=== PATIENT | female | born 1975 ===

== ENCOUNTER → 2021-07-02 09:40 | Outpatient (BNVA) | payer OTHER, MEDICAID, SELFPAY | PROVIDERS: PCP Hospitalist; Visit Provider Nurse Practitioner Family | DX: G47.33 Obstructive sleep apnea (adult) (pediatric) (principal); R40.0 Somnolence; R00.2 Palpitations; F43.0 Acute stress reaction; Z87.891 Personal history of nicotine dependence; Z88.6 Allergy status to analgesic agent; Z88.0 Allergy status to penicillin; Z88.8 Allergy status to other drugs, medicaments and biological substances; Z99.89 Dependence on other enabling machines and devices; Z79.899 Other long term (current) drug therapy | CPT/HCPCS: 99212 ==

== ENCOUNTER 2023-03-31 11:40 | Outpatient (AMB) | payer OTHER, SELFPAY ==
--- NOTE | 2023-03-31 11:44 | MHC.OFFVIS ---
Intake Vital Signs 03/31/23 11:46 Height 5 ft 4 in Weight 241 lb 8 oz BMI 41.4 BP 130/82 Blood Pressure Location Lt brachial Position Sitting Pulse 80 Pulse Source Pulse Oximeter Pulse Oximetry (%) 99 Oxygen Delivery Method Room Air Intake Visit Reasons: Follow up - CANDICE - LVM Allergies acetaminophen [From Percocet] Allergy (Intermediate, Verified 03/31/23 11:49) Chest Pain leuprolide [From Lupron] Allergy (Intermediate, Verified 03/31/23 11:49) Rash oxycodone [From Percocet] Allergy (Intermediate, Verified 03/31/23 11:49) Chest Pain Penicillins Allergy (Intermediate, Verified 03/31/23 11:49) Rash tretinoin [From Altreno] Allergy (Intermediate, Verified 03/31/23 11:49) Rash venlafaxine Allergy (Intermediate, Verified 03/31/23 11:49) Itching HPI HPI Comments History of Present Illness Details 48 y/o female patient presents for follow up of CANDICE on CPAP. Pt reports she stopped using CPAP more than a year ago. No CPAP compliance date available since 03/2021. Pt reports she did not tolerate CPAP, woke up in the middle of night with heart palpitation and her BP was elevated. Also she sees black spots when she uses CPAP. Pt's last sleep study maybe three years ago. Pt continues to endorse gasping arousals, non refreshing sleep, with daytime sleepiness and AM headache. Pt was on PAP 5-20 cmH2O. She tried ativan for anxiety q HS, but it caused her skin itchiness and she stopped taking it. Pt sees psychiatrist for anxiety and panic attack. She is on hydroxyzine 25 mg TID. Pt wants to retry CPAP. Her CPAP does not transmitting and had a new SD card. Pt still has her original CPAP. [facility] Medical History Memory loss Acid reflux Headache Depression Asthma Arthritis Surgical History H/O knee surgery Hx of hysterectomy Hx of tubal ligation Social History Household Members Other:: mom Alcohol intake: former Patient Tobacco Use Status: Former Tobacco user Review of Systems Const All systems reviewed & are unremarkable except as noted in HPI and below Physical Exam Vital Signs: Last Vital Signs Pulse 80 03/31/23 11:46 BP 130/82 03/31/23 11:46 Pulse Ox 99 03/31/23 11:46 Oxygen Delivery Method Room Air 03/31/23 11:46 Const General: cooperative and comfortable Nutritional Appearance: obese Orientation/consciousness: patient oriented x3 Resp Effort & Inspection: normal respiratory effort and able to speak in complete sentences Auscultation: clear to auscultation bilaterally Neuro General: patient oriented x3 and CN's II-XI intact bilaterally Cognition (Neuro): normal cognition Assessment & Plan Assessment & Plan (1) Anxiety: Code(s): F41.9 - Anxiety disorder, unspecified (2) Obstructive sleep apnea (adult) (pediatric): Code(s): G47.33 - Obstructive sleep apnea (adult) (pediatric) Plan Advised patient to undergo repeat sleep study to assess sleep apnea. Advised patient to retry CPAP, and changes SD card. Continue to take hydroxyzine 25 mg TID. Orders: Orders RT PSG in-lab sleep study Today E66.01 - Morbid (severe) obesity due to excess calories, G47.33 - Obstructive sleep apnea (adult) (pediatric) Coding Level of Care Code Est Pt Level 3 (00620) Diagnoses Anxiety F41.9 Obstructive sleep apnea (adult) (pediatric) G47.33
[2023-03-31 11:46] VITALS: BP 130/82; PULSE 80; O2SAT 99; BMI 41.4
== END 2023-03-31 12:13 | disposition home or self-care (01) ==
PROVIDERS: PCP Hospitalist; Visit Provider Nurse Practitioner Family
DX: F41.9 Anxiety disorder, unspecified (principal); G47.33 Obstructive sleep apnea (adult) (pediatric)
CPT/HCPCS: 99213

== ENCOUNTER → 2023-03-31 11:40 | Outpatient (BNVA) | payer OTHER, SELFPAY | PROVIDERS: PCP Hospitalist; Visit Provider Nurse Practitioner Family | DX: F41.9 Anxiety disorder, unspecified (principal); G47.33 Obstructive sleep apnea (adult) (pediatric) | CPT/HCPCS: 99212 ==

== ENCOUNTER → 2023-04-20 21:21 | Outpatient (REF) | payer OTHER, SELFPAY | LOC: HO.SL 21:21 | PROVIDERS: Visit Provider Nurse Practitioner Family | DX: G47.33 Obstructive sleep apnea (adult) (pediatric) (principal); E66.01 Morbid (severe) obesity due to excess calories | CPT/HCPCS: 95810 ==

== ENCOUNTER → 2023-04-20 23:39 | Outpatient (BNV) | payer OTHER, SELFPAY | PROVIDERS: Visit Provider Psychiatry & Neurology Neurology | DX: G47.33 Obstructive sleep apnea (adult) (pediatric) (principal) | CPT/HCPCS: 95810 ==

== ENCOUNTER → 2023-05-31 19:30 | Outpatient (BNV) | payer OTHER, SELFPAY | PROVIDERS: PCP Hospitalist; Visit Provider Internal Medicine | DX: G47.33 Obstructive sleep apnea (adult) (pediatric) (principal) | CPT/HCPCS: 95811 ==

== ENCOUNTER → 2023-05-31 19:30 | Outpatient (REF) | payer OTHER, SELFPAY | LOC: HO.SL 19:30 | PROVIDERS: PCP Hospitalist; Visit Provider Nurse Practitioner Family | DX: G47.33 Obstructive sleep apnea (adult) (pediatric) (principal); E66.01 Morbid (severe) obesity due to excess calories | CPT/HCPCS: 95811 ==

== ENCOUNTER 2023-08-03 11:02 | Outpatient (AMB) | payer OTHER, SELFPAY ==
--- NOTE | 2023-08-03 11:07 | A.OFFVIS_ITS ---
Intake Vital Signs 08/03/23 11:22 Height 5 ft 4 in Weight 244 lb BMI 41.9 BP 130/80 Blood Pressure Location Lt brachial Position Sitting Pulse 64 Pulse Source Pulse Oximeter Pulse Oximetry (%) 99 Oxygen Delivery Method Room Air Intake Visit Reasons: 4 mnts f/u for CANDICE - LVM w/address Intake Note: Patient presents for 4 months F/U. feeling not enough air from the machine. Hasn't been able to use machine because pt. is feeling she can't breath. Allergies acetaminophen [From Percocet] Allergy (Intermediate, Verified 08/03/23 11:14) Chest Pain leuprolide [From Lupron] Allergy (Intermediate, Verified 08/03/23 11:14) Rash oxycodone [From Percocet] Allergy (Intermediate, Verified 08/03/23 11:14) Chest Pain Penicillins Allergy (Intermediate, Verified 08/03/23 11:14) Rash tretinoin [From Altreno] Allergy (Intermediate, Verified 08/03/23 11:14) Rash venlafaxine Allergy (Intermediate, Verified 08/03/23 11:14) Itching HPI HPI Comments History of Present Illness Details 48 y/o female patient presents for follo w up of sleep study. The PSG sleep study result was significant for a moderate degree of sleep apnea with increased severity in REM sleep. The AHI was 19/hr, REM AHI was 84/hr and oxygen javier was 73%. She underwent CPAP titration study and CPAP at [id number] is recommended. The CPAP compliance and therapy response reviwed. Pt still is on APAP [id number]. She tried CPAP again, but it still caused chest palpitation, and it wakes her up. She can't sleep with it. She is not compliant. [facility] Medical History Memory loss Acid reflux Headache Depression Asthma Arthritis Surgical History H/O knee surgery Hx of hysterectomy Hx of tubal ligation Family History (Updated 08/03/23 @ 11:21 by Margret English CMA) Mother Hypertension Arthritis Anxiety Depression Father Dementia Bipolar 2 disorder Psychoneurotic personality Schizophrenia Brother Schizophrenia Bipolar 2 disorder Social History Household Members Other:: mom Alcohol intake: former Patient Tobacco Use Status: Former Tobacco user Review of Systems Const All systems reviewed & are unremarkable except as noted in HPI and below Physical Exam Vital Signs: Last Vital Signs Pulse 64 08/03/23 11:22 BP 130/80 08/03/23 11:22 Pulse Ox 99 08/03/23 11:22 Oxygen Delivery Method Room Air 08/03/23 11:22 BMI result Body Mass Index 41.9 Const General: cooperative and comfortable Nutritional Appearance: obese Orientation/consciousness: patient oriented x3 Resp Effort & Inspection: normal respiratory effort and able to speak in complete sentences Auscultation: clear to auscultation bilaterally Neuro General: patient oriented x3 and CN's II-XI intact bilaterally Cognition (Neuro): normal cognition Assessment & Plan Assessment & Plan (1) Obstructive sleep apnea (adult) (pediatric): Code(s): G47.33 - Obstructive sleep apnea (adult) (pediatric) (2) Anxiety: Code(s): F41.9 - Anxiety disorder, unspecified Plan Changed the CPAP pressure to [id number] as titration study recommended. Stressed compliance, use CPAP nightly and more than 4 hrs. Continue to use hydroxyzine 25 mg TID. Wt reduction advised. Coding Level of Care Code Est Pt Level 3 (01392) Diagnoses Obstructive sleep apnea (adult) (pediatric) G47.33 Anxiety F41.9
[2023-08-03 11:22] VITALS: BP 130/80; PULSE 64; O2SAT 99; BMI 41.9
== END 2023-08-03 11:38 | disposition home or self-care (01) ==
PROVIDERS: PCP Hospitalist; Visit Provider Nurse Practitioner Family
DX: G47.33 Obstructive sleep apnea (adult) (pediatric) (principal); F41.9 Anxiety disorder, unspecified
CPT/HCPCS: 99213

== ENCOUNTER → 2023-08-03 11:02 | Outpatient (BNVA) | payer OTHER, SELFPAY | PROVIDERS: PCP Hospitalist; Visit Provider Nurse Practitioner Family | DX: G47.33 Obstructive sleep apnea (adult) (pediatric) (principal); F41.9 Anxiety disorder, unspecified | CPT/HCPCS: 99212 ==

== ENCOUNTER 2024-01-19 09:43 | Outpatient (AMB) | payer OTHER, SELFPAY ==
--- NOTE | 2024-01-19 09:44 | A.OFFVIS_ITS ---
Vital Signs 01/19/24 09:45 Height 5 ft 4 in Weight 238 lb BMI 40.8 BP 122/67 Blood Pressure Location Rt brachial Position Sitting Pulse 64 Pulse Source Doppler Pulse Oximetry (%) 98 Oxygen Delivery Method Room Air Intake Visit Reasons: jamal Allergies acetaminophen [From Percocet] Allergy (Intermediate, Verified 08/03/23 11:14) Chest Pain leuprolide [From Lupron] Allergy (Intermediate, Verified 08/03/23 11:14) Rash oxycodone [From Percocet] Allergy (Intermediate, Verified 08/03/23 11:14) Chest Pain Penicillins Allergy (Intermediate, Verified 08/03/23 11:14) Rash tretinoin [From Altreno] Allergy (Intermediate, Verified 08/03/23 11:14) Rash venlafaxine Allergy (Intermediate, Verified 08/03/23 11:14) Itching HPI HPI jamal: Details: 48-year-old lady, former 8 pack-year smoker, quit 2016 with underlying history moderate obstructive sleep apnea on CPAP therapy and asthma currently controlled with albuterol MDI /nebs as needed referred for evaluation of respiratory complaints. Patient states that she experiences significant shortness of breath when she falls asleep even after applying her CPAP. Patient states that over the years she has had to add multiple pillows and now she is sleeping on total of 3 pillows +and neck pillow trying to keep herself elevated. Patient states that she can not breathe well if she lays in bed flat. She also complains of significant lower extremity edema, off note, patient does have underlying venous insufficiency for which she is undergoing workup. Patient denies prior personal and family history of lung diseases. Patient does state that there is history of coronary artery disease in the family. Patient also states that she knows that she has a heart murmur. She denies exposure to industrial dusts. [facility] Medical History (Updated 01/19/24 @ 10:21 by Tristan Velasco MD) Memory loss Acid reflux Headache Depression Asthma Arthritis Surgical History H/O knee surgery Hx of hysterectomy Hx of tubal ligation Family History (Updated 08/03/23 @ 11:21 by SIOMARA Etienne) Mother Hypertension Arthritis Anxiety Depression Father Dementia Bipolar 2 disorder Psychoneurotic personality Schizophrenia Brother Schizophrenia Bipolar 2 disorder Social History Household Members Other:: mom Alcohol intake: former Patient Tobacco Use Status: Former Tobacco user Review of Systems Const Denies daytime sleepiness, Denies excessive sweating, Denies fatigue, Denies fever(s), Denies lethargy, Denies malaise, Denies night sweats, Denies snoring and Denies weight loss Eyes Denies blurry vision and Denies itchy eyes ENT Denies nasal congestion, Denies post nasal drip, Denies sinus pain, Denies sinus pressure and Denies other ( Thrush) Card Denies chest pain, Reports pedal edema, Denies dyspnea, Reports orthopnea and Reports paroxysmal nocturnal dyspnea Resp Denies cough, Denies hemoptysis, Denies excessive phlegm production, Denies dyspnea, Denies snoring and Denies wheezing GI Denies abdominal pain and Denies heartburn Musc Denies myalgias, Denies arthralgias and Denies joint swelling Skin/Breast Denies rash Neuro Denies memory loss and Denies seizure-like activity Psych Denies abnormal sleep pattern, Denies anxiety and Denies memory loss Endo Denies excessive sweating, Denies fatigue and Denies heat intolerance Palomo/Lymph Denies easy bruising Aller/Immun Denies itchy eyes, Denies seasonal rhinorrhea and Denies wheezing Physical Exam Vital Signs: Last Vital Signs Pulse 64 01/19/24 09:45 BP 122/67 01/19/24 09:45 Pulse Ox 98 01/19/24 09:45 Oxygen Delivery Method Room Air 01/19/24 09:45 BMI result Body Mass Index 40.8 Const General: no acute distress and alert Nutritional Appearance: obese Orientation/consciousness: Other orientation findings ( oriented) HEENT Head: Yes atraumatic Eyes General: appearance normal, both eyes and all related structures Sclerae: sclerae normal EOM: EOMs intact bilaterally Neck Neck: Yes supple Lymphatic: no lymphadenopathy noted Resp Effort & Inspection: normal respiratory effort and no use of accessory muscles Auscultation: clear to auscultation bilaterally Cardio Rate: regular rate Rhythm: regular rhythm Heart sounds: no gallops, no murmurs and no rubs Skin General skin exam: other ( warm) Extrem General: No clubbing, No cyanosis and Yes edema ( Trace bilateral) Assessment & Plan Assessment & Plan (1) Dyspnea on exertion: Code(s): R06.09 - Other forms of dyspnea Category: Medical (2) Heart murmur: Code(s): R01.1 - Cardiac murmur, unspecified Category: Medical (3) Orthopnea: Code(s): R06.01 - Orthopnea Category: Medical (4) Asthma: Code(s): J45.909 - Unspecified asthma, uncomplicated Category: Medical (5) Obstructive sleep apnea (adult) (pediatric): Code(s): G47.33 - Obstructive sleep apnea (adult) (pediatric) Category: Medical Plan Patient does have underlying obstructive sleep apnea on CPAP therapy managed by sleep medicine provider. Patient appears to experience orthopnea, paroxysmal nocturnal dyspnea, and lower extremity edema and does have personal history of heart murmur. Will obtain 2D echocardiogram and switch her hydrochlorothiazide to furosemide 40 mg daily. Will re-evaluate symptoms in approximately 4 weeks. Patient does have underlying asthma of unclear severity that appears to be reasonably well controlled on her current regimen of albuterol MDI / nebs. Will obtain full PFT and continue the current inhaler regimen. Orders: Orders CA echo transthorac w con Today R01.1 - Cardiac murmur, unspecified, R06.01 - Orthopnea, R06.09 - Other forms of dyspnea PFT pulmonary function test Today J45.909 - Unspecified asthma, uncomplicated Medications: New furosemide 40 mg PO QAM 30 tabs 6RF Coding Level of Care Code New Pt Level 4 (77063) Diagnoses Dyspnea on exertion R06.09 Heart murmur R01.1 Orthopnea R06.01 Asthma J45.909 Obstructive sleep apnea (adult) (pediatric) G47.33
[2024-01-19 09:45] VITALS: BP 122/67; PULSE 64; O2SAT 98; BMI 40.8
== END 2024-01-19 10:29 | disposition home or self-care (01) ==
PROVIDERS: PCP Hospitalist; Visit Provider Internal Medicine Pulmonary Disease
DX: R06.09 Other forms of dyspnea (principal); R01.1 Cardiac murmur, unspecified; R06.01 Orthopnea; J45.909 Unspecified asthma, uncomplicated; G47.33 Obstructive sleep apnea (adult) (pediatric)
CPT/HCPCS: 99204

== ENCOUNTER → 2024-01-19 09:43 | Outpatient (BNVA) | payer OTHER, SELFPAY | PROVIDERS: PCP Hospitalist; Visit Provider Internal Medicine Pulmonary Disease | DX: G47.33 Obstructive sleep apnea (adult) (pediatric) (principal); R06.09 Other forms of dyspnea; R01.1 Cardiac murmur, unspecified; R06.01 Orthopnea; J45.909 Unspecified asthma, uncomplicated; Z99.89 Dependence on other enabling machines and devices | CPT/HCPCS: 99202 ==

== ENCOUNTER 2024-01-24 09:04 | Outpatient (AMB) | payer OTHER, SELFPAY ==
--- NOTE | 2024-01-24 09:09 | A.OFFVIS_ITS ---
Vital Signs 01/24/24 09:14 Height 5 ft 4 in BP 180/110 H Blood Pressure Location Rt brachial Position Sitting Pulse 65 Pulse Source Pulse Oximeter Pulse Oximetry (%) 98 Oxygen Delivery Method Room Air Intake Visit Reasons: Follow up Intake Note: Pt's is not using cpap machine and BP is high has pounding headache. Account Advisor Required: No Accompanied by: Self / Same As Patient Allergies acetaminophen [From Percocet] Allergy (Intermediate, Verified 01/24/24 09:09) Chest Pain leuprolide [From Lupron] Allergy (Intermediate, Verified 01/24/24 09:09) Rash oxycodone [From Percocet] Allergy (Intermediate, Verified 01/24/24 09:09) Chest Pain Penicillins Allergy (Intermediate, Verified 01/24/24 09:09) Rash tretinoin [From Altreno] Allergy (Intermediate, Verified 01/24/24 09:09) Rash venlafaxine Allergy (Intermediate, Verified 01/24/24 09:09) Itching Medication List - Last Reconciled 01/24/24 by ANA MARÍA Nye albuterol sulfate mg inhalation TID PRN albuterol sulfate 90 mcg/actuation (ProAir HFA) 2 puffs inhalation Q6H PRN citalopram (Celexa) 10 mg PO DAILY fluticasone propionate 50 mcg/actuation sprays intranasal furosemide 40 mg PO QAM hydroxyzine HCl 25 mg PO TID omeprazole 40 mg PO DAILY HPI Comments Details: 49-yr-old female presents for follow-up visit of sleep apnea. Pt reports that she used to like using her CPAP machine, as she felt she slept better and had more energy during the day. However, since her last visit here in July 2023, she has not been able to use her CPAP machine, as she wakes up feeling her heart beating and pounding in her chest and up into her neck and SOB, which persists at least 20 minutes. She states this only happens when she uses the CPAP. Without the CPAP, she has witnessed apneas. At times, she wakes up feeling a bit disoriented. She sleeps with her head elevated w/ 3 pillows- has done this for a long time, as if she lays flat she will feel like someone is choking her neck. She does endorse ankle swelling. Today, pt's BP is 180/110 w/ HR 64 and 160/100 w/ HR 65 on f/u. She states she i s having whooshing in her left ear, mild BLE ankle swelling, SOB w/ activity. Denies headache, chest pain. She did [place] [facility] [place], who has advsied pt to undergo echocardiogram, PFTs, He also changed her HCTZ 25mg qd to furosemide 40mg qd. She did stop the HCTZ but never started the Furosemide as she states Dr Velasco told her to stop it if she has am headache but she already wakes up w/ headache. She stopped her lisiopril 5mg qd 2-3 weeks ago, as she felt her heart was shaking- states that this was not a palpation, and this shaking subsided upon stopping Lisinopril. [facility] Medical History Memory loss Acid reflux Headache Depression Asthma Arthritis Surgical History H/O knee surgery Hx of hysterectomy Hx of tubal ligation Family History Mother Hypertension Arthritis Anxiety Depression Father Dementia Bipolar 2 disorder Psychoneurotic personality Schizophrenia Brother Schizophrenia Bipolar 2 disorder Social History Household Members Other:: mom Alcohol intake: former Patient Tobacco Use Status: Former Tobacco user Physical Exam Vital Signs: Last Vital Signs Pulse 65 01/24/24 09:14 BP 180/110 H 01/24/24 09:14 Pulse Ox 98 01/24/24 09:14 Oxygen Delivery Method Room Air 01/24/24 09:14 Const General: no acute distress Orientation/consciousness: patient oriented x3 HEENT Other: Mallampati stage Resp Effort & Inspection: normal respiratory effort and able to speak in complete sentences Auscultation: clear to auscultation bilaterally Cardio Jugular venous distension: no JVD Rate: regular rate Rhythm: regular rhythm Neuro General: patient oriented x3 Extrem Other: BLE distal non-pitting edema. Psych Mental Status: mental status grossly normal Speech and movement: Clear speech present Attitude: cooperative Results Reviewed Results Reviewed: PAP compliance report- see HPI Assessment & Plan Assessment & Plan (1) Obstructive sleep apnea on CPAP: Comment: Moderate degree of sleep apnea with increased severity in REM. AHI was 19/hr, REM AHI was 84/hr and oxygen javier was 73%. Pt is on APAP but not tolerated. Code(s): G47.33 - Obstructive sleep apnea (adult) (pediatric) Category: Medical (2) HTN (hypertension): Code(s): I10 - Essential (primary) hypertension Category: Medical Plan I suspect that pt's poor PAP tolerance may possibly be r/t underlying pulmonary or cardiology etiology, as review of previous PAP compliance data does show good reduction in residual AHI on both APAP [id number] and CPAP [id number] and pt tolerated PAP tx well during Fen 2023 PAP titration study. Concur w/ pulmonary/cardiac work-up. If Pulm/Cardiac work-up is unremarkable, consider optimizing anxiety tx. Continue to sleep w/ HOB elevated. Advised pt to take HCTZ 25mg x's 1 dose upon returning home and to notify us if BP > 160/100. Referred pt for urgent nephrology consult- scheduled for tomorrow 01/24 w/ Dr Jhony Gomez. Pt advised to call 911 if she develops any red flag s/s, such as chest pain or SOB at rest. f/u call placed to pt, she took Furosemide 40mg x's one upon returning home, BP was 130s/80s. States she is feeling ok w/o chest pain or SOB. Pt to follow-up in 3-6 months or sooner prn. Orders: Orders Complete Blood Count Auto Diff Today I10 - Essential (primary) hypertension Comprehensive Met. Panel Today I10 - Essential (primary) hypertension Referrals Nephrology Referral I10 - Essential (primary) hypertension Coding Level of Care Code Est Pt Level 4 (58804) Diagnoses Obstructive sleep apnea on CPAP G47.33 HTN (hypertension) I10
[2024-01-24 09:14] VITALS: BP 180/110; PULSE 65; O2SAT 98
== END 2024-01-24 10:02 | disposition home or self-care (01) ==
PROVIDERS: PCP Hospitalist; Visit Provider Nurse Practitioner Family
DX: G47.33 Obstructive sleep apnea (adult) (pediatric) (principal); I10 Essential (primary) hypertension
CPT/HCPCS: 99214

== ENCOUNTER → 2024-01-24 09:04 | Outpatient (BNVA) | payer OTHER, SELFPAY | PROVIDERS: PCP Hospitalist; Visit Provider Nurse Practitioner Family | DX: G47.33 Obstructive sleep apnea (adult) (pediatric) (principal); I10 Essential (primary) hypertension; Z99.89 Dependence on other enabling machines and devices | CPT/HCPCS: 99212 ==

== ENCOUNTER 2024-01-24 10:17 | Outpatient (REF) | payer OTHER, SELFPAY ==
[2024-01-24 17:45] LABS: MANUAL DIFF FLAG NO
[2024-01-24 18:02] LABS: Basophils Absolute Auto 0.1 X10*3/uL (0.0-0.2); Basophils Percent Auto 1.2 % (0-2); Eosinophils Absolute Auto 0.1 X10*3/uL (0.0-0.4); Eosinophils Percent Auto 2.4 % (0-4); Hematocrit 36.2 % (37.0-47.0); Hemoglobin 12.2 g/dl (12.0-16.0); Imm Gran Abs Auto 0.01 X10*3/uL (0.00-0.03); Imm Gran Pct Auto 0.2 % (0.0-0.4); Lymphocytes Absolute Auto 2.1 X10*3/uL (1.2-4.9); Lymphocytes Percent Auto 41.1 % (20-40); Mean Corpuscular HGB Conc 33.7 g/dl (31.0-35.0); Mean Corpuscular Hemoglobin 30.3 pg (27.0-33.0); Mean Corpuscular Volume 89.8 fL (80.0-98.0); Mean Platelet Volume 10.2 fL (9.4-12.3); Monocytes Absolute Auto 0.3 X10*3/uL (0.1-1.2); Monocytes Percent Auto 6.3 % (2-11); Neutrophils Absolute Auto 2.5 x10*3/uL (2.0-8.3); Neutrophils Percent Auto 48.8 % (45-73); Platelet Count 284 X10*3/uL (160-400); Red Blood Count 4.03 X10*6/uL (4.20-5.50); Red Cell Distribution Width 13.4 % (11.0-16.0); White Blood Count 5.1 X10*3/uL (4.8-10.8)
[2024-01-24 18:15] LABS: Alanine Aminotransferase 12 U/L (0-31); Albumin Level 4.1 g/dL (3.5-5.0); Alkaline Phosphatase 96 U/L (39-117); Anion Gap 10 (12-20); Aspartate Amino Transferase 13 U/L (5-31); Bilirubin Total 0.4 mg/dL (0.0-1.0); Blood Urea Nitrogen 12 mg/dL (9-16); Calcium 9.3 mg/dL (8.4-10.2); Carbon Dioxide 27 mmol/L (22-29); Chloride 108 mmol/L (96-108); Estimated Glomerular Filt Rate > 60; Glucose Random 108 mg/dL (60-115); Potassium 4.1 mmol/L (3.3-5.1); Sodium 141 mmol/L (135-145); Total Protein 7.1 g/dL (6.5-8.0)
== END 2024-01-24 10:18 | disposition home or self-care (01) ==
LOC: HO.HKASLDS 10:17
PROVIDERS: Visit Provider Nurse Practitioner Family
DX: I10 Essential (primary) hypertension (principal)
CPT/HCPCS: 36415; 80053; 85025

== ENCOUNTER 2024-01-25 11:40 | Outpatient (AMB) | payer OTHER, SELFPAY ==
[2024-01-25 11:43] VITALS: BP 138/90; PULSE 66; O2SAT 98; BMI 40.3
--- NOTE | 2024-01-25 11:43 | MHC.OFFVIS ---
Vital Signs 01/25/24 11:43 01/25/24 12:07 Height 5 ft 4 in Weight 235 lb BMI 40.3 BP 138/90 H 130/80 Blood Pressure Location Lt brachial Lt brachial Position Sitting Sitting Pulse 66 Pulse Source Pulse Oximeter Pulse Oximetry (%) 98 Oxygen Delivery Method Room Air Intake Visit Reasons: Hypertension [employer] S[employer] Leveler Required: No Accompanied by: Self / Same As Patient Allergies acetaminophen [From Percocet] Allergy (Intermediate, Verified 01/25/24 11:45) Chest Pain leuprolide [From Lupron] Allergy (Intermediate, Verified 01/25/24 11:45) Rash oxycodone [From Percocet] Allergy (Intermediate, Verified 01/25/24 11:45) Chest Pain Penicillins Allergy (Intermediate, Verified 01/25/24 11:45) Rash tretinoin [From Altreno] Allergy (Intermediate, Verified 01/25/24 11:45) Rash venlafaxine Allergy (Intermediate, Verified 01/25/24 11:45) Itching Medication List - Last Reconciled 01/25/24 by Matthew Gomez MD albuterol sulfate mg inhalation TID PRN albuterol sulfate 90 mcg/actuation (ProAir HFA) 2 puffs inhalation Q6H PRN citalopram (Celexa) 10 mg PO DAILY fluticasone propionate 50 mcg/actuation sprays intranasal hydroxyzine HCl 25 mg PO TID omeprazole 40 mg PO DAILY HPI Comments Details: Tamara is a pleasant 49-year-old woman with a history of obesity and hypertension sleep apnea has been referred for evaluation hypertension. She was on hydrochlorothiazide until recently. This was discontinued and switched to Lasix 40 mg a day by Dr. Velasco She was chronic leg edema/ Lymphedema [facility] Medical History Memory loss Acid reflux Headache Depression Asthma Arthritis Surgical History H/O knee surgery Hx of hysterectomy Hx of tubal ligation Family History Mother Hypertension Arthritis Anxiety Depression Father Dementia Bipolar 2 disorder Psychoneurotic personality Schizophrenia Brother Schizophrenia Bipolar 2 disorder Social History Household Members Other:: mom Alcohol intake: former Patient Tobacco Use Status: Former Tobacco user Review of Systems Const Denies fever(s) and Denies weight loss Card Denies chest pain Resp Denies cough and Denies hemoptysis GI Denies abdominal pain, Denies diarrhea and Denies nausea Musc Denies back pain Neuro Denies focal weakness Physical Exam Vital Signs: Last Vital Signs Pulse 66 01/25/24 11:43 BP 130/80 01/25/24 12:07 Pulse Ox 98 01/25/24 11:43 Oxygen Delivery Method Room Air 01/25/24 11:43 BMI result Body Mass Index 40.3 Awake. Comfortable. Neck is supple. Mucosa moist. Lungs air entry equal Heart S1-S2 heard no gallop. Abdomen soft. Extremities leg edema. No involuntary movements. No myoclonus. Assessment & Plan Assessment & Plan (1) HTN (hypertension): Code(s): I10 - Essential (primary) hypertension Category: Medical Plan 49-year-old woman with a history of hypertension obesity and sleep apnea. Wide fluctuation in the blood pressure First step is to obtain ABP M. Encouraged her to stand low-sodium diet continue current medications. Further workup based on ABP M Orders: Orders AMB 24 HR B/P Monitor PLACEMENT 01/25/24 I10 - Essential (primary) hypertension Coding Level of Care Code New Pt Level 4 (31678) Diagnoses HTN (hypertension) I10
[2024-01-25 12:07] VITALS: BP 130/80
== END 2024-01-25 12:10 | disposition home or self-care (01) ==
PROVIDERS: PCP Hospitalist; Visit Provider Internal Medicine Hypertension Specialist
DX: I10 Essential (primary) hypertension (principal)
CPT/HCPCS: 99204

== ENCOUNTER → 2024-01-25 11:40 | Outpatient (BNVA) | payer OTHER, SELFPAY | PROVIDERS: PCP Hospitalist; Visit Provider Internal Medicine Hypertension Specialist | DX: I10 Essential (primary) hypertension (principal) | CPT/HCPCS: 99202 ==

== ENCOUNTER → 2024-02-14 09:47 | Outpatient (REF) | payer OTHER, SELFPAY ==
--- NOTE | 2024-02-14 09:49 | CA_ITS ---
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 The visually estimated ejection fraction is between 60-65%. - No obvious valvular pathology seen on this study. - Tricuspid regurgitation envelope is inadequate for calculation of right ventricular systolic pressure. Findings Left Ventricle Normal left ventricular cavity size. There is normal left ventricular wall thickness. The left ventricular systolic function is normal. The visually estimated ejection fraction is between 60-65%. There is no evidence of regional wall motion abnormalities. Diastolic function is normal for age. There is mild septal asymmetric hypertrophy. Right Ventricle Normal right ventricular cavity size and systolic function. Atria Both atria are normal in size. Aortic Valve The aortic valve was not well visualized. There is no aortic valve stenosis. There is no aortic valve regurgitation. Mitral Valve The mitral valve appears normal. There is no mitral valve regurgitation. There is no mitral valve stenosis. Pulmonic Valve The pulmonic valve is likely normal. Tricuspid Valve There is no tricuspid valve regurgitation. Tricuspid regurgitation envelope is inadequate for calculation of right ventricular systolic pressure. Great Vessels The asc aorta is normal in size. Venous The inferior vena cava is normal in size and collapses greater than 50% with inspiration. Pericardium/Pleural There is a trivial pericardial effusion. Prior Study Comparison No prior study available for comparison. Recommendations, Care & Conclusions No obvious valvular pathology seen on this study. Measurements 2D Linear Measurements IVSd: 1.04 0.6-0.9/0.6-1.0 cm LVIDd: 4.54 3.9-5.3/4.2-5.9 cm LVIDd Index: 2.20 2.4-3.2/2.2-3.1 cm/m2 LVIDs: 2.88 2.0-3.6 cm LVPWd: 1.10 0.7-1.1 cm Ao Root: 2.60 2.1-3.5 cm LA Diam: 4.00 2.7-3.8/3.0-4.0 cm LAIDs Index: 1.94 1.5-2.3 cm/m2 LV Mass: 212.68 67-162/88-224 g LV Mass Index: 103.24 43-95/49-115 g/m2 LVOT Diam: 2.10 3.0+(-)1.3 cm 2D Systolic Function EF 4C: 63.70 >55% EF 2C: 75.90 >55% EF BiP: 69.90 >55% Mitral Valve MV Pk E: 0.96 MV Decel Time: 228.00 E'Lateral: 9.36 E'Medial: 7.83 E/E' Med: 12.30 E/E' Lat: 10.30 PHT: 67.00 MVA PHT: 3.28 Decel Barry: 4.21 Aortic Valve AoV Pk Kenny: 1.49 AoV Pk Grad: 9.00 LVOT LVOT Pk Kenny: 0.98 LVOT Mn Kenny: 0.73 LVOT VTI: 0.27 LVOT Pk Grad: 4.00 LVOT Mn Grad: 2.00 LVOT Diam: 2.10 LVOT Area: 3.46 Diastolic Function MV Pk E: 0.96 E'Medial: 7.83 E/E' Med: 12.30 E' Laterial: 9.36 E/E' Lat: 10.30 Tricuspid Valve TR Pk Kenny: 1.76 TR Pk Grad: 12.00 Great Vessels Aorta Ao Root-2D: 2.60 2.0-3.7 cm Ao Asc: 3.00 2.1-3.4 cm Pulmonary Valve PV Pk Kenny: 1.12 Peak PV Grad: 5.00 Updated in Other Vendor System with Status of Final Brennan Jimenez MD electronically signed on 02/14/2024 2:10:46 PM with status of Final
== END ==
LOC: HO.CARD 09:47
PROVIDERS: PCP Hospitalist; Visit Provider Internal Medicine Pulmonary Disease
DX: R01.1 Cardiac murmur, unspecified (principal); R06.09 Other forms of dyspnea; R06.01 Orthopnea
CPT/HCPCS: 93306

== ENCOUNTER → 2024-02-14 09:49 | Outpatient (BNV) | payer OTHER, SELFPAY | PROVIDERS: PCP Hospitalist; Visit Provider Internal Medicine | DX: I42.2 Other hypertrophic cardiomyopathy (principal) | CPT/HCPCS: 93306 ==

== ENCOUNTER 2024-02-16 08:54 | Outpatient (REF) | payer OTHER, SELFPAY ==
--- NOTE | 2024-02-16 09:52 | PFT_ITS ---
Flows: FEV1: 82 % of predicted at 2.26 L FVC: 81 % of predicted at 2.79 L FEV1/FVC: 81 % Bronchodilator response: Absent Volumes: Total lung capacity: 69 % of predicted at 3.61 L Residual volume: 59 % of predicted at 0.89 L Slow vital capacity: 73 % of predicted at 2.72 L Expiratory reserve volume: 11 % of predicted at 0.11 L Diffusion capacity: Normal Impression: Mild restrictive ventilatory defect with no bronchodilator response. Decreased expiratory reserve volume suggests extrathoracic restriction likely secondary to abdominal obesity. MTDD
[2024-02-16 10:44] VITALS: PULSE 67; RESP 16; O2SAT 99
== END 2024-02-16 08:55 | disposition home or self-care (01) ==
LOC: HO.RESP 08:54
PROVIDERS: PCP Hospitalist; Visit Provider Internal Medicine Pulmonary Disease
DX: J45.909 Unspecified asthma, uncomplicated (principal)
CPT/HCPCS: 94010; 94640; 94727; 94729

== ENCOUNTER → 2024-02-16 09:52 | Outpatient (BNV) | payer OTHER, SELFPAY | PROVIDERS: PCP Hospitalist; Visit Provider Internal Medicine Pulmonary Disease | DX: J45.909 Unspecified asthma, uncomplicated (principal) | CPT/HCPCS: 94060; 94727; 94729 ==

== ENCOUNTER 2024-02-23 11:40 | Outpatient (AMB) | payer OTHER, SELFPAY ==
[2024-02-23 11:45] VITALS: BP 128/82; PULSE 72; O2SAT 98; BMI 40.9
--- NOTE | 2024-02-23 11:45 | A.OFFVIS_ITS ---
Vital Signs 02/23/24 11:45 Height 5 ft 4 in Weight 238 lb 1.588 oz BMI 40.9 BP 128/82 Blood Pressure Location Rt brachial Position Sitting Pulse 72 Pulse Source Doppler Pulse Oximetry (%) 98 Oxygen Delivery Method Room Air Intake Visit Reasons: Obstructive sleep apnea Tentering Machine Off Bearer Required: Yes Tentering Machine Off Bearer Name: Milly Tomlin Ortiz Allergies acetaminophen [From Percocet] Allergy (Intermediate, Verified 01/25/24 11:45) Chest Pain leuprolide [From Lupron] Allergy (Intermediate, Verified 01/25/24 11:45) Rash oxycodone [From Percocet] Allergy (Intermediate, Verified 01/25/24 11:45) Chest Pain Penicillins Allergy (Intermediate, Verified 01/25/24 11:45) Rash tretinoin [From Altreno] Allergy (Intermediate, Verified 01/25/24 11:45) Rash venlafaxine Allergy (Intermediate, Verified 01/25/24 11:45) Itching HPI HPI Obstructive sleep apnea: Details: 48-year-old lady, former 8 pack-year smoker, quit 2016 with underlying history moderate obstructive sleep apnea on CPAP therapy and asthma currently controlled with albuterol MDI /nebs as needed referred for evaluation of respiratory complaints. Patient states that she experiences significant shortness of breath when she falls asleep even after applying her CPAP. Patient states that over the years she has had to add multiple pillows and now she is sleeping on total of 3 pillows +and neck pillow trying to keep herself elevated. Patient states that she can not breathe well if she lays in bed flat. She also complains of significant lower extremity edema, off note, patient does have underlying venous insufficiency for which she is undergoing workup. Patient denies prior personal and family history of lung diseases. Patient does state that there is history of coronary artery disease in the family. Patient also states that she knows that she has a heart murmur. She denies exposure to industrial dusts. Office visit patient had pulmonary function test that demonstrated moderate restrictive ventilatory defect in 2D echocardiogram which was essentially normal. [facility] Medical History Memory loss Acid reflux Headache Depression Asthma Arthritis Surgical History H/O knee surgery Hx of hysterectomy Hx of tubal ligation Family History Mother Hypertension Arthritis Anxiety Depression Father Dementia Bipolar 2 disorder Psychoneurotic personality Schizophrenia Brother Schizophrenia Bipolar 2 disorder Social History Household Members Other:: mom Alcohol intake: former Patient Tobacco Use Status: Former Tobacco user Review of Systems Const Denies daytime sleepiness, Denies excessive sweating, Denies fatigue, Denies fever(s), Denies lethargy, Denies malaise, Denies night sweats, Denies snoring and Denies weight loss Eyes Denies blurry vision and Denies itchy eyes ENT Denies nasal congestion, Denies post nasal drip, Denies sinus pain, Denies sinus pressure and Denies other ( Thrush) Card Denies chest pain, Denies pedal edema, Denies dyspnea, Reports orthopnea and Denies paroxysmal nocturnal dyspnea Resp Denies cough, Denies hemoptysis, Denies excessive phlegm production, Denies dyspnea, Denies snoring and Denies wheezing GI Denies abdominal pain and Denies heartburn Musc Denies myalgias, Denies arthralgias and Denies joint swelling Skin/Breast Denies rash Neuro Denies memory loss and Denies seizure-like activity Psych Denies abnormal sleep pattern, Denies anxiety and Denies memory loss Endo Denies excessive sweating, Denies fatigue and Denies heat intolerance Palomo/Lymph Denies easy bruising Aller/Immun Denies itchy eyes, Denies seasonal rhinorrhea and Denies wheezing Physical Exam Vital Signs: Last Vital Signs Pulse 72 02/23/24 11:45 BP 128/82 02/23/24 11:45 Pulse Ox 98 02/23/24 11:45 Oxygen Delivery Method Room Air 02/23/24 11:45 BMI result Body Mass Index 40.9 Const General: no acute distress and alert Nutritional Appearance: obese Orientation/consciousness: Other orientation findings ( oriented) HEENT Head: Yes atraumatic Eyes General: appearance normal, both eyes and all related structures Sclerae: sclerae normal EOM: EOMs intact bilaterally Neck Neck: Yes supple Lymphatic: no lymphadenopathy noted Resp Effort & Inspection: normal respiratory effort and no use of accessory muscles Auscultation: clear to auscultation bilaterally Cardio Rate: regular rate Rhythm: regular rhythm Heart sounds: no gallops, no murmurs and no rubs Skin General skin exam: other ( warm) Extrem General: No clubbing, No cyanosis and No edema Assessment & Plan Assessment & Plan (1) Asthma: Code(s): J45.909 - Unspecified asthma, uncomplicated Category: Medical Plan: Results of pulmonary function test reviewed underlying moderate restrictive physiology, likely secondary to abdominal obesity. Daytime symptoms control on as needed albuterol MDI/nebs. Continue current regimen. (2) Orthopnea: Code(s): R06.01 - Orthopnea Category: Medical Plan: Results of 2D echocardiogram reviewed and essentially normal. Patient continues to undergo workup for lower extremity edema. Coding Level of Care Code Est Pt Level 4 (79260) Diagnoses Asthma J45.909 Orthopnea R06.01
== END 2024-02-23 12:10 | disposition home or self-care (01) ==
LOC: HO.HPS 11:41
PROVIDERS: PCP Hospitalist; Visit Provider Internal Medicine Pulmonary Disease
DX: J45.909 Unspecified asthma, uncomplicated (principal); R06.01 Orthopnea
CPT/HCPCS: 99214

== ENCOUNTER → 2024-02-23 11:40 | Outpatient (BNVA) | payer OTHER, SELFPAY | PROVIDERS: PCP Hospitalist; Visit Provider Internal Medicine Pulmonary Disease | DX: J45.909 Unspecified asthma, uncomplicated (principal); R06.01 Orthopnea | CPT/HCPCS: 99212 ==

== ENCOUNTER 2024-03-21 11:40 | Outpatient (AMB) | payer OTHER, SELFPAY ==
[2024-03-21 11:43] VITALS: BP 134/74; PULSE 55; O2SAT 99
--- NOTE | 2024-03-21 11:43 | HO.NEPHOV ---
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: No Accompanied by: Self / Same As Patient Allergies acetaminophen [From Percocet] Allergy (Intermediate, Verified 03/21/24 11:44) Chest Pain leuprolide [From Lupron] Allergy (Intermediate, Verified 03/21/24 11:44) Rash oxycodone [From Percocet] Allergy (Intermediate, Verified 03/21/24 11:44) Chest Pain Penicillins Allergy (Intermediate, Verified 03/21/24 11:44) Rash tretinoin [From Altreno] Allergy (Intermediate, Verified 03/21/24 11:44) Rash venlafaxine Allergy (Intermediate, Verified 03/21/24 11:44) Itching Medication List - Last Reconciled 03/21/24 by Matthew Gomez MD albuterol sulfate mg inhalation TID PRN albuterol sulfate 90 mcg/actuation (ProAir HFA) 2 puffs inhalation Q6H PRN citalopram (Celexa) 10 mg PO DAILY fluticasone propionate 50 mcg/actuation sprays intranasal hydroxyzine HCl 25 mg PO TID omeprazole 40 mg PO DAILY HPI Comments Details: Tamara is a pleasant 49-year-old woman with a history of obesity and hypertension sleep apnea has been referred for evaluation hypertension. She was on hydrochlorothiazide until recently. This was discontinued and switched to Lasix 40 mg a day by Dr. Velasco She was chronic leg edema/ Lymphedema 03/21/24 Underwent ABPM Says she is on Lasix 10 mg QD PFSH Medical History Memory loss Acid reflux Headache Depression Asthma Arthritis Surgical History H/O knee surgery Hx of hysterectomy Hx of tubal ligation Family History Mother Hypertension Arthritis Anxiety Depression Father Dementia Bipolar 2 disorder Psychoneurotic personality Schizophrenia Brother Schizophrenia Bipolar 2 disorder Social History Household Members Other:: mom Alcohol intake: former Patient Tobacco Use Status: Former Tobacco user Physical Exam Vital Signs: Last Vital Signs Pulse 55 03/21/24 11:43 BP 134/74 03/21/24 11:43 Pulse Ox 99 03/21/24 11:43 Oxygen Delivery Method Room Air 03/21/24 11:43 Office Procedures 24 B/P Monitor Interpretation Details: ABPM Stage 1 HTN NON Dipper Daytime Systolic load 33% Nite time systolic load 89% Mild superimposed white coat effect CPT: 31173 24 Hour Blood Pressure Monitor Reading Procedure code (CPT) selection complete Results Reviewed Results Reviewed: Echocardiogram Conclusions: - The left ventricular systolic function is normal. The visually estimated ejection fraction is between 60-65%. - No obvious valvular pathology seen on this study. - Tricuspid regurgitation envelope is inadequate for calculation of right ventricular systolic pressure. Findings Left Ventricle Normal left ventricular cavity size. There is normal left ventricular wall thickness. The left ventricular systolic function is normal. The visually estimated ejection fraction is between 60-65%. There is no evidence of regional wall motion abnormalities. Diastolic function is normal for age. There is mild septal asymmetric hypertrophy. Right Ventricle Normal right ventricular cavity size and systolic function. Nephrology Results: Hgb 12.2 g/dl (12.0-16.0) 01/24/24 WBC 5.1 X10*3/uL (4.8-10.8) 01/24/24 Plt Count 284 X10*3/uL (160-400) 01/24/24 Sodium 141 mmol/L (135-145) 01/24/24 Potassium 4.1 mmol/L (3.3-5.1) 01/24/24 Chloride 108 mmol/L (96-108) 01/24/24 Carbon Dioxide 27 mmol/L (22-29) 01/24/24 BUN 12 mg/dL (9-16) 01/24/24 Creatinine 0.77 mg/dL (0.5-1.4) 01/24/24 Calcium 9.3 mg/dL (8.4-10.2) 01/24/24 Assessment & Plan Assessment & Plan (1) HTN (hypertension): Code(s): I10 - Essential (primary) hypertension Category: Medical Plan 49-year-old woman with a history of hypertension obesity and sleep apnea. Wide fluctuation in the blood pressure ABPM shows Stage 1 HTN without dipping Mild superimpsoed white coat effect No nocturnal dipping - most likely due to CANDICE/Obesity She is currently not using CPAP Can increase LAsix to 20 mg QD Other option is to switch to HCTZ 25 mg QD Encouraged her to stay on low-sodium diet continue current medications. Needs weight loss Renal function is stable Orders: Orders AMB 24 HR B/P Monitor INTERPRETATION Today I10 - Essential (primary) hypertension Coding Level of Care Code Est Pt Level 4 (26771) Diagnoses HTN (hypertension) I10 CPT Codes - CPT: 06860 24 Hour Blood Pressure Monitor Reading ([id number])
== END 2024-03-21 12:01 | disposition home or self-care (01) ==
PROVIDERS: PCP Hospitalist; Visit Provider Internal Medicine Hypertension Specialist
DX: I10 Essential (primary) hypertension (principal)
CPT/HCPCS: 93790; 99214

== ENCOUNTER → 2024-03-21 11:40 | Outpatient (BNVA) | payer OTHER, SELFPAY | PROVIDERS: PCP Hospitalist; Visit Provider Internal Medicine Hypertension Specialist | DX: I10 Essential (primary) hypertension (principal) | CPT/HCPCS: 93786; 99212 ==

== ENCOUNTER 2024-08-08 09:47 | Outpatient (AMB) | payer OTHER, SELFPAY ==
--- NOTE | 2024-08-08 09:52 | A.OFFVIS_ITS ---
Vital Signs 08/08/24 09:53 Height 5 ft 4 in Weight 243 lb BMI 41.7 BP 140/90 H Blood Pressure Location Rt brachial Position Sitting Pulse 64 Pulse Source Pulse Oximeter Pulse Oximetry (%) 97 Oxygen Delivery Method Room Air Intake Visit Reasons: Follow up Intake Note: Patient presents follow up CANDICE. Non compliant with CPAP. Compliance in chart Interlacer Required: No Accompanied by: Self / Same As Patient Allergies acetaminophen [From Percocet] Allergy (Intermediate, Verified 08/08/24 09:56) Chest Pain leuprolide [From Lupron] Allergy (Intermediate, Verified 08/08/24 09:56) Rash oxycodone [From Percocet] Allergy (Intermediate, Verified 08/08/24 09:56) Chest Pain Penicillins Allergy (Intermediate, Verified 08/08/24 09:56) Rash tretinoin [From Altreno] Allergy (Intermediate, Verified 08/08/24 09:56) Rash venlafaxine Allergy (Intermediate, Verified 08/08/24 09:56) Itching Medication List - Last Reconciled 08/08/24 by ANA MARÍA Nye albuterol sulfate mg inhalation TID PRN albuterol sulfate 90 mcg/actuation (ProAir HFA) 2 puffs inhalation Q6H PRN citalopram (Celexa) 10 mg PO DAILY fluticasone propionate 50 mcg/actuation sprays intranasal hydroxyzine HCl 25 mg PO TID omeprazole 40 mg PO DAILY HPI Comments Details: 49-yr-old female presents for follow-up visit of sleep apnea. Pt reports that she is not doing well. She is not sleeping well, specifically not maintaining sleep well. She can not sleep flat, has to sleep on 3 pillows, wakes up gasping with her heart racing, in her tongue feeling dry and swollen. She tries to use her CPAP machine, but still could not tolerate it, She saw pulmonary. who switched hydrochlorothiazide to furosemide- however, pt states this makes her very dry- so she cannot take it regularly. Pulmonary also ordered echocardiogram and PFTs. Unfortunately, patient has missed her recent follow-up nephrology and Pulmonary appointments-states she probably just forgot due to overall not sleeping well. Echocardiogram results showed - The left ventricular systolic function is normal. The visuallyestimated ejection fraction is between 60-65%. - No obvious valvular pathology seen on this study. - Tricuspid regurgitation envelope is inadequate for calculation of right ventricular systolic pressure. PFT results showed Mild restrictive ventilatory defect with no bronchodilator response. Decreased expiratory reserve volume suggests extrathoracic restriction likely secondary to abdominal obesity. Patient is open to being referred for weight management clinic to discuss weight loss options in setting of CANDICE an extrathoracic pulmonary restriction. Pt reports a family history of cancers as follows, though denies any known family history of endocrine, medullary thyroid carcinoma (MTC), or Multiple Endocrine Neoplasia syndrome type 2 (MEN 2). * maternal side: brain cancer, breast cancer * paternal side: colon cancer, breast cancer She is s/p cholecystectomy Previous HPI, 01/24/2024: Pt reports that she used to like using her CPAP machine, as she felt she slept better and had more energy during the day. However, since her last visit here in July 2023, she has not been able to use her CPAP machine, as she wakes up feeling her heart beating and pounding in her chest and up into her neck and SOB, which persists at least 20 minutes. She states this only happens when she uses the CPAP. Without the CPAP, she has witnessed apneas. At times, she wakes up feeling a bit disoriented. She sleeps with her head elevated w/ 3 pillows- has done this for a long time, as if she lays flat she will feel like someone is choking her neck. She does endorse ankle swelling. Today, pt's BP is 180/110 w/ HR 64 and 160/100 w/ HR 65 on f/u. She states she is having whooshing in her left ear, mild BLE ankle swelling, SOB w/ activity. Denies headache, chest pain. She did recently see [place] [facility] [place], who has advsied pt to undergo echocardiogram, PFTs, He also changed her HCTZ 25mg qd to furosemide 40mg qd. She did stop the HCTZ but never started the Furosemide as she states Dr Velasco told her to stop it if she has am headache but she already wakes up w/ headache. She stopped her lisiopril 5mg qd 2-3 weeks ago, as she felt her heart was shaking- states that this was not a palpation, and this shaking subsided upon stopping Lisinopril. [facility] Medical History Memory loss Acid reflux Headache Depression Asthma Arthritis Surgical History H/O knee surgery Hx of hysterectomy Hx of tubal ligation Family History Mother Hypertension Arthritis Anxiety Depression Father Dementia Bipolar 2 disorder Psychoneurotic personality Schizophrenia Brother Schizophrenia Bipolar 2 disorder Social History Household Members Other:: mom Alcohol intake: former Patient Tobacco Use Status: Former Tobacco user Physical Exam Vital Signs: Last Vital Signs Pulse 64 08/08/24 09:53 BP 140/90 H 08/08/24 09:53 Pulse Ox 97 08/08/24 09:53 Oxygen Delivery Method Room Air 08/08/24 09:53 BMI result Body Mass Index 41.7 Const General: no acute distress Nutritional Appearance: obese Orientation/consciousness: patient oriented x3 Resp Effort & Inspection: normal respiratory effort and able to speak in complete sentences Neuro General: patient oriented x3 Psych Mental Status: mental status grossly normal Speech and movement: Clear speech present Attitude: cooperative Assessment & Plan Assessment & Plan (1) Obstructive sleep apnea on CPAP: Comment: Moderate degree of sleep apnea with increased severity in REM. AHI was 19/hr, REM AHI was 84/hr and oxygen javier was 73%. Pt is on APAP but not tolerated. Code(s): G47.33 - Obstructive sleep apnea (adult) (pediatric) Category: Medical (2) Obesity, Class III, BMI 40-49.9 (morbid obesity): Code(s): E66.01 - Morbid (severe) obesity due to excess calories Category: Medical (3) HTN (hypertension): Code(s): I10 - Essential (primary) hypertension Category: Medical Plan Patient continues to be unable to tolerate APAP [id number] and CPAP [id number]. Discussed that the PFT findings of extrathoracic pulmonary restriction, maybe making it harder for her to tolerate PAP therapy. Advise patient to follow-up with Pulmonary and Nephrology. We will initiate weight management consult, to explore her candidacy C4 obesity treatment in the setting of CANDICE, such as Zepbound therapy. At this point, I do not see any clear contraindications to Zepbound therapy. Continue furosemide per Nephrology. Recheck CBC and CMP. Continue to sleep w/ HOB elevated and in lateral position-advised to try a wedge pillow designed for CANDICE Pt to follow-up in 3-6 months or sooner prn. Orders: Orders Complete Blood Count Auto Diff Today I10 - Essential (primary) hypertension Comprehensive Met. Panel Today I10 - Essential (primary) hypertension Referrals Medical Weight Management Referral E66.01 - Morbid (severe) obesity due to excess calories, G47.33 - Obstructive sleep apnea (adult) (pediatric) Coding Level of Care Code Est Pt Level 4 (58207) Diagnoses Obstructive sleep apnea on CPAP G47.33 Obesity, Class III, BMI 40-49.9 (morbid obesity) E66.01 HTN (hypertension) I10
[2024-08-08 09:53] VITALS: BP 140/90; PULSE 64; O2SAT 97; BMI 41.7
--- OUTSIDE RECORDS SUMMARY | 2024-08-08 11:02 | XMS_ITS ---
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 Name Role Phone RADHA PLASCENCIA Primary Care Provider [phone] José Luis Mantilla Unavailable [phone] Allergies Allergen (clinical drug ingredient) Drug/Non Drug Allergy documented on EMR Reaction Allergy Type Onset Date Status codeine Codeine Sulfate Unknown Drug Allergy A ctive Lupron Unknown Drug Allergy Active acetaminophen / oxycodone Percocet Unknown Drug Allergy Active predniSONE burning sensation with urination Drug Allergy Active tramadol Ultram Unknown Drug Allergy Active REASON FOR VISIT fever, asthma, cold symptoms, and eye pain Medications Medication SIG (Take, Route, Frequency, Duration) Notes Start Date End Date Status Flovent HFA 110 MCG/ACT 2 puffs Inhalati on Twice a day for 30 days Active Tylenol 8 Hour Arthritis Pain 650 MG 2 tablets as needed Orally every 8 hrs for 30 days 07/08/2022 Active Albuterol Sulfate (2.5 MG/3ML) 0.083% 3 ml as needed Inhalation Three times a day for 30 days Active Flonase Allergy Relief 50 MCG/ACT 1 spray in each nostril Nasally Once a day for 30 days Not-Taking Linzess 72 MCG 1 capsule at least 30 minutes before the first meal of the day on an empty stomach Orally Once a day for 30 days 11/11/2023 Active hydrOXYzine HCl 25 MG TAKE 1 TABLET BY MOUTH EVERY 8 HOURS NEEDED for 30 Active Fluticasone Propionate 50 MCG/ACT 1 spray in each nostril Nasally Once a day for 90 days Active Amoxicillin 500 MG 1 capsule Orally every 8 hrs for 10 days 06/21/2024 Active Nebulizer - as directed every 4 hours prn Dx: J45.909 for 30 days 03/21/2018 Active Ventolin HFA 108 (90 Base) MCG/ACT 2 puffs as needed Inhalation every 6 hrs for 90 days Active hydroCHLOROthiazide 25 MG 1 tablet in th e morning Orally Once a day for 90 days Not-Taking Clotrimazole 1 % 1 application Externally Twice a day for 28 days 12/22/2020 Not-Taking Benzonatate 100 MG 1 capsule as needed Orally Three times a day for 7 days 06/23/2023 Not-Taking Amoxicillin 500 MG 1 capsule Orally every 8 hrs for 5 days 06/23/2023 Not-Taking Qumjmase-Uqpzqxbnj-US 1 % 4 drops into affected ear Otic Three times a day for 7 days 04/20/2023 Not-Taking Benzonatate 100 MG 1 capsule as needed Orally Three times a day for 15 days 06/21/2024 Active Meloxicam 15 MG 1 tablet Orally Once a day for 30 day(s) 07/08/2022 Not-Taking Lisinopril-hydroCHLOROthiazi de 20-25 MG TAKE 1 TABLET BY MOUTH EVERY DAY for 90 Not-Taking amLODIPine Besylate 5 MG 1 tablet Orally Once a day for 90 days Not-Taking Aspirin Adult Low Dose 81 MG 1 tablet Or ally Once a day Not-Taking Atorvastatin Calcium 10 MG TAKE 1 TABLET BY MOUTH EVERY DAY FOR 90 DAYS for 90 Active hydroCHLOROthiazide 25 MG 1 tablet in th e morning Orally Once a day for 30 days 12/14/2023 Active Omeprazole 40 MG TAKE 1 CAPSULE BY MOUTH EVERY DAY for 90 Active predniSONE 20 MG 1 tablet Orally Once a day for 7 days 05/23/2024 Not-Taking Baclofen 5 MG 1 tablet with food or milk Orally Once a day for 30 days 05/23/2024 Not-Taking Vital Signs Temperature 97.1 degrees Fahrenheit 06/21/19 25 Oximetry 99 % 06/21/2024 Heart Rate 66 /min 06/21/2024 Blood pressure systolic 130 mm Hg 06/21/19 25 Blood pressure diastolic 72 mm Hg 025 Weight 238 lbs 06/21/2024 BMI 41.49 kg/m2 06/21/2024 Height 63.50 in 06/21/2024 Encounters Encounter Location Date Provider Diagnosis [address] [address] 06/21/2024 José Luis Mantilla Impaired fasting glucose R73.01 and Acute sinusitis, unspecified J01.90 Assessments Encounter Date Diagnosis (ICD Code) Assessment Notes Treatment Notes Treatment Clinical Notes Section Notes 06/21/2024 Impaired fasting glucose (ICD-10 - R73.01) Ms. Multani is a 49-year-old lady with hypertension, morbid obesity, asthma, sleep apnea and anxiety disorder here for URI. As follows Acute sinusitis - She states that she has been experiencing symptoms since Tuesday, she is out of the window for COVID test and Flu test. She admits to fever 2 days ago. She admits to nasal congestion with facial pressure and facial pain. Physical examination is remarkable for tenderness to palpation over the sinus area, erythematous throat without exudate. Lungs are clear to auscultation with no wheezing. Strep test is negative. Start patient on amoxicillin, benzonatate, continue using albuterol. Increase hydration and can take Tylenol as needed Impaired fasting glucose - Previous A1c of 6.1, fasting blood glucose within normal limits. There is a restriction have been discussed. Will also check A1c I have rendered the services for this patient under direct supervision of Dr. Plascencia, who did not see the patient but was available upon request 06/21/2024 Acute sinusitis, unspecified (ICD-10 - J01.90) Ms. Multani is a 49-year-old lady with hypertension, morbid obesity, asthma, sleep apnea and anxiety disorder here for URI. As follows Acute sinusitis - She states that she has been experiencing symptoms since Tuesday, she is out of the window for COVID test and Flu test. She admits to fever 2 days ago. She admits to nasal congestion with facial pressure and facial pain. Physical examination is remarkable for tenderness to palpation over the sinus area, erythematous throat without exudate. Lungs are clear to auscultation with no wheezing. Strep test is negative. Start patient on amoxicillin, benzonatate, continue using albuterol. Increase hydration and can take Tylenol as needed Impaired fasting glucose - Previous A1c of 6.1, fasting blood glucose within normal limits. There is a restriction have been discussed. Will also check A1c I have rendered the services for this patient under direct supervision of Dr. Plascencia, who did not see the patient but was available upon request Plan Of Treatment Medication Medication Name Sig Start Date Stop Date Notes Amoxicillin 500 MG 1 capsule Orally devora ry 8 hrs for 10 days 06/21/2024 Benzonatate 100 MG 1 capsule as needed Orally Three times a day for 15 days 06/21/2024 Pending Test Test Name Order Date Hemoglobin [id number] 06/21/2024 Next Appt Details Follow Up: next appt, Reason : Provider Name:Pierre Archuleta 08/13/2024 08:45:00 AM, [address] [place] [address], [id number], Progress Notes * Uriah MULTANIaDOB:1975 ( 49 yo F)Acc No.[id number]:06/21/2024 Patient:?Tamara MULTANI Provider:?José Luis Mantilla :1975???Age:49 Y???Sex:Female D ate:06/21/2024 Address:[address] [place], [place] [id number] Pcp:RADHA PLASCENCIA Subjective: * Chief Complaints: * ???Fever, asthma, cold sympt oms, and eye pain * HPI: ???Internal Medicine:?Ms. Multani is a 49-year-old lady with hypertension, morbid obesity, asthma, sleep apnea and anxiety disorder here for URI. SHe has not been feeling well since Tuesday. She did not get tested for COVID at home. She has been around her granddaughter who was sick. She has been experiencing SORENSON, around the eyes, watery eyes, nasal congestion, dry throat, muscle pain. He had fever two days ago, did not take her temp. Admits to night sweats. She has dry cough. She denies any other active issues. * ROS:?General/Constitutional:?Overall health?Good.?Change in appetite?denies.?Chills?,admits.?Admits?Fatigue.?Fever?denies.?Admits?Headache.? Night sweats?,admits.?Sleep disturbance?denies.?Weight gain?denies.?Weight loss?denies.?Neurologic:?Difficulty speaking?denies.?Dizziness?denies.?Gait abnormality?denies.?Headache?denies.?Loss of strength?denies.?Memory loss?denies.?Seizures?denies.?Tingling/Numbness?denies .?Ophthalmologic:?Patient complaining of?watery eyes.?Blurred vision?denies.?Discharge?denies.?Dry eye?denies.?Red eye?denies.?ENT:?Change in Voice?Denies.?Cold Symptoms?Denies.?Cough?Denies.?Dizziness?Denies.?Nasal Congestion?Denies.?Otalgia?Denies.?postnasal drip?Denies.?Blocked ear?denies.?Nosebleed?denies.?Snoring?denies.?Cardiovascular:?Diaphoresis?Denies.?Pedal Edema?Denies.?PND (Paroxsymal nocturnal dyspnea)?Denies.?Chest pain?denies.?Difficulty laying flat?denies.?Dyspnea on exertion?denies.?Heart murmur?denies.?Orthopnea?denies.?Respiratory:?Snoring?denies.?Asthma?,admits.?Cough?,admits,non- productive.?Admits?Shortness of breath,?,admits.?Shortness of breath with exertion?denies.?Sputum production?denies.?Wheezing?denies.?Gastrointestinal:?Admits?Abdominal pain.?Denies?Blood in stool.?Change in bowel habits?denies.?Constipation?denies.?Decreased appetite?denies.?Diarrhea?denies.?Heartburn?denies.?Nausea?denies.?Vomiting?sandra es.?Musculoskeletal:?tingling/numbness?Denies.?myalgias?Denies.?Joint Swelling?Denies.?extremeties?normal.?Arthritis?denies.?Back problems?denies.?Carpal tunnel?denies.?Joint stiffness?denies.?Muscle aches?denies.?Endocrine:?Bowel Changes?Denies.?Breast Discharge?Denies.?poor libido?Denies.?Cold intolerance?denies.?Excessive sweating?denies.?Excessive thirst?denies.?Frequent urination?denies.?Thyroid problems?denies.?Skin:?Bruising?Denies.?Eczema?denies.?Hair changes?denies.?Rash?denies.?Skin lesion(s)?denies.?Psychiatric:?Anxiety?denies.?Depressed mood?denies.?Difficulty sleeping?denies.?Nervous breakdown?denies.?Substance abuse?denies.?Urology:?abnormal menstrual bleeding?denies.?blood in urine?denies.?burning on urination?denies.?difficulty urinating?denies.?discharge?denies.?dysuria?denies.? * Medical History:? * Medications:?TakingNebulizer - Device as directed every 4 hours prn Dx: J45.909 Ventolin HFA 108 (90 Base) MCG/ACT Aerosol Solution 2 puffs as needed Inhalation every 6 hrs hydrOXYzine HCl 25 MG Tablet TAKE 1 TABLET BY MOUTH EVERY 8 HOURS NEEDED Fluticasone Propionate 50 MCG/ACT Suspension 1 spray in each nostril Nasally Once a day Flovent HFA 110 MCG/ACT Aerosol 2 puffs Inhalation Twice a day Tylenol 8 Hour Arthritis Pain 650 MG Tablet Extended Release 2 tablets as needed Orally every 8 hrs Albuterol Sulfate (2.5 MG/3ML) 0.083% Nebulization Solution 3 ml as needed Inhalation Three times a day Linzess 72 MCG Capsule 1 capsule at least 30 minutes before the first meal of the day on an empty stomach Orally Once a day Atorvastatin Calcium 10 MG Tablet TAKE 1 TABLET BY MOUTH EVERY DAY FOR 90 DAYS hydroCHLOROthiazide 25 MG Tablet 1 tablet in the morning Orally Once a day Omeprazole 40 MG Capsule Delayed Release TAKE 1 CAPSULE BY MOUTH EVERY DAY Taking Nebulizer - Device as directed every 4 hours prn Dx: J45.909 Taking Ventolin HFA 108 (90 Base) MCG/ACT Aerosol Solution 2 puffs as needed Inhalation every 6 hrs Taking hydrOXYzine HCl 25 MG Tablet TAKE 1 TABLET BY MOUTH EVERY 8 HOURS NEEDED Taking Fluticasone Propionate 50 MCG/ACT Suspension 1 spray in each nostril Nasally Once a day Taking Flovent HFA 110 MCG/ACT Aerosol 2 puffs Inhalation Twice a day Taking Tylenol 8 Hour Arthritis Pain 650 MG Tablet Extended Release 2 tablets as needed Orally every 8 hrs Taking Albuterol Sulfate (2.5 MG/3ML) 0.083% Nebulization Solution 3 ml as needed Inhalation Three times a day Taking Linzess 72 MCG Capsule 1 capsule at least 30 minutes before the first meal of the day on an empty stomach Orally Once a day Taking Atorvastatin Calcium 10 MG Tablet TAKE 1 TABLET BY MOUTH EVERY DAY FOR 90 DAYS Taking hydroCHLOROthiazide 25 MG Tablet 1 tablet in the morning Orally Once a day Taking Omeprazole 40 MG Capsule Delayed Release TAKE 1 CAPSULE BY MOUTH EVERY DAY Not-TakingFlonase Allergy Relief 50 MCG/ACT Suspension 1 spray in each nostril Nasally Once a day predniSONE 20 MG Tablet 1 tablet Orally Once a day Baclofen 5 MG Tablet 1 tablet with food or milk Orally Once a day Meloxicam 15 MG Tablet 1 tablet Orally Once a day Lisinopril-hydroCHLOROthiazide 20-25 MG Tablet TAKE 1 TABLET BY MOUTH EVERY DAY amLODIPine Besylate 5 MG Tablet 1 tablet Orally Once a day Aspirin Adult Low Dose 81 MG Tablet Delayed Release 1 tablet Orally Once a day hydroCHLOROthiazide 25 MG Tablet 1 tablet in the morning Orally Once a day Clotrimazole 1 % Cream 1 application Externally Twice a day Benzonatate 100 MG Capsule 1 capsule as needed Orally Three times a day Amoxicillin 500 MG Capsule 1 capsule Orally every 8 hrs Umdbpqlu-Gsgjgxcxg-JA 1 % Solution 4 drops into affected ear Otic Three times a day Not-Taking Flonase Allergy Relief 50 MCG/ACT Suspension 1 spray in each nostril Nasally Once a day Not-Taking predniSONE 20 MG Tablet 1 tablet Orally Once a day Not-Taking Baclofen 5 MG Tablet 1 tablet with food or milk Orally Once a day Not-Taking Meloxicam 15 MG Tablet 1 tablet Orally Once a day Not- Taking Lisinopril-hydroCHLOROthiazide 20-25 MG Tablet TAKE 1 TABLET BY MOUTH EVERY DAY Not-Taking amLODIPine Besylate 5 MG Tablet 1 tablet Orally Once a day Not-Taking Aspirin Adult Low Dose 81 MG Tablet Delayed Release 1 tablet Orally Once a day Not-Taking hydroCHLOROthiazide 25 MG Tablet 1 tablet in the morning Orally Once a day Not-Taking Clotrimazole 1 % Cream 1 application Externally Twice a day Not- Taking Benzonatate 100 MG Capsule 1 capsule as needed Orally Three times a day Not- Taking Amoxicillin 500 MG Capsule 1 capsule Orally every 8 hrs Not-Taking Uiaqqflv-Ksbcslcfg-LY 1 % Solution 4 drops into affected ear Otic Three times a day * Allergies:?Percocet: Allergy Codeine Sulfate: AllergyLupron: AllergyUltram: AllergypredniSONE: burning sensation with urination - Criticality Low Objective: * Vitals:?Temp:97.1F, Oxygen s at %:99%, HR:66/min, BP: 140/80 mm Hg,130/72mm Hg, Wt:238lbs, BMI:41.49Index, Ht: 63.50 in. * ???Past Orders: ???Lab:Hemoglobin A1c (Order Date - 08/12/2023) (Collection Date & Time - 03/19/2024 11:54 AM) ? Value Reference Range ?Hemoglobin A1c 6.1 H - %Hb ?Estimated Average Glucose 128 - mg/dL ???Lab:COMPREHENSIVE METABOL IC PANEL (Order Date - 11/05/2023) (Collection Date & Time - 11/05/2023 05:10 PM) ? Value Reference Range ?ALBUMIN 3.7 3.2-5.0 - G/ dL ?ALK PHOS 102 42-121 - U/ L ?SGPT 25 10-60 - U/L ?ANION GAP 9 3-11 - ?SGOT 17 10-42 - U/L ?BILI,TOTAL 0.4 0.0-1.4 - mg/dL ?BUN 8 5-25 - mg/dL ?CALCIUM 9.0 8.5-10.5 - m g/dL ?CHLORIDE 105 96-110 - mm ol/L ?CO2 25 21-32 - mmol/L ?CREAT 0.71 0.5-1.1 - mg/d L ?GLOMERULAR FILTRATION RATE 104 >60 - ?GLUCOSE 97 70-100 - mg/ dL ?POTASSIUM 3.7 3.5-5.5 - mmol/L ?SODIUM 139 135-145 - mEq /L ?TOTAL PROTEIN 7.0 6.0-8. 0 - G/dL ???Lab:Lipid Panel-[id number] (O rder Date - 08/11/2023) (Collection Date & Time - 08/11/2023 10:18 AM) ? Value Reference Range ?Cholesterol, Total 147 1 00-199 - mg/dL ?Triglycerides 88 0-149 - mg/dL ?HDL Cholesterol 40 >39 - mg/dL ?VLDL Cholesterol Sterling 17 5-40 - mg/dL ?LDL Chol Calc (NIH) 90 0-99 - mg/dL * Examination: ???General Examination: ?Psychiatry?Normal.?GENERAL APPEARANCE:?Well developed, well nourished, in no acute distress.?MUSCULOSKELETAL:?normal.?HEAD:?Normocephalic, atraumatic.?EYES:?Pupils equal, round, reactive to light and accommodation, sclera non-icteric.?EARS:?Normal.?ORAL CAVITY:?Normal.?THROAT:?Clear.?OROPHARYNX?Normal.?SINUSES?tender to palpate.?NECK/THYROID:?Neck supple, full range of motion, no cervical lymphadenopathy.?SKIN:?Warm and dry, no suspicious lesions.?HEART:?, S1, S2 normal, regular rate and rhythm.?LUNGS:?, clear to auscultation bilaterally, no wheezes, rales, rhonchi.?BREASTS:?__.?ABDOMEN:?bowel sounds present.?EXTREMITIES:?Normal.?PERIPHERAL PULSES:?Normal.?NEUROLOGIC:?Nonfocal,? appropriate?motor strength normal upper and lower extremities, sensory exam intact.?FEMALE GENITOURINARY:?__.?MALE GENITOURINARY:?__.?Special Education Paraeducator? .? Assessment: * Assessment: 1.?Impaired fasting glucose - R73.01???2.?Acute sinusitis, unspecified - J01.90??? Ms. Multani is a 49-year-old lady with hypertension, morbid obesity, asthma, sleep apnea and anxiety disorder here for URI. As follows Acute sinusitis - She states that she has been experiencing symptoms since Tuesday, she is out of the window for COVID test and Flu test.? She admits to fever 2 days ago.? She admits to nasal congestion with facial pressure and facial pain.? Physical examination is remarkable for tenderness to palpation over the sinus area, erythematous throat without exudate.? Lungs are clear to auscultation with no wheezing.? Strep test is negative.? Start patient on amoxicillin, benzonatate, continue using albuterol.? Increase hydration and can take Tylenol as needed Impaired fasting glucose - Previous A1c of 6.1, fasting blood glucose within normal limits. There is a restriction have been discussed. Will also check A1c I have rendered the services for this patient under direct supervision of Dr. Plascencia, who did not see the patient but was available upon request Plan: * Treatment: 2.?Acute sinusitis, unspecif ied? Start Amoxicillin Capsule, 500 MG, 1 capsule, Orally, every 8 hrs, 10 days, 30 Capsule, Refills 0;?Start Benzonatate Capsule, 100 MG, 1 capsule as needed, Orally, Three times a day, 15 days, 45 Capsule, Refills 0.?? * Procedure Codes:?3078F DIAST BP < 80 MM [id number] SYST BP GE 130 - 139MM HG * Follow Up:?next appt * * Sign off status: Completed true * Provider:?José Luis Mantilla Date:?06/21/19 Generated for Printi ng/Suhail/eTransmitting on:?08/08/2024 11:02 AM EDT History and Physical Notes * HPI (History of Present Illness) Category Sub-Category Detail Notes Category Not es Internal Medicine Ms. Multani is a 49-year-old lady with hypertension, morbid obesity, asthma, sleep apnea and anxiety disorder here for URI. SHe has not been feeling well since Tuesday. She did not get tested for COVID at home. She has been around her granddaughter who was sick. She has been experiencing SORENSON, around the eyes, watery eyes, nasal congestion, dry throat, muscle pain. He had fever two days ago, did not take her temp. Admits to night sweats. She has dry cough. She denies any other active issues. Examination Category Sub-Category Detail Notes Category Not es General Examination GENERAL APPEARANCE: Well dev eloped, well nourished, in no acute distress HEAD: Normocephalic, atrau matic EYES: Pupils equal, round, reactive to light and accommodation, sclera non-icteric EARS: Normal THROAT: Clear NECK/THYROID: Neck supple, full ra nge of motion, no cervical lymphadenopathy HEART: , S1, S2 normal, reg ular rate and rhythm LUNGS: , clear to auscultat ion bilaterally, no wheezes, rales, rhonchi ABDOMEN: bowel sounds present NEUROLOGIC: Nonfocal, appropriat e motor strength normal upper and lower extremities, sensory exam intact SKIN: Warm and dry, no renetta picious lesions EXTREMITIES: Normal PERIPHERAL PULSES: Normal BREASTS: __ MUSCULOSKELETAL: normal MALE GENITOURINARY: __ FEMALE GENITOURINARY: __ ORAL CAVITY: Normal Psychiatry Normal OROPHARYNX Normal SINUSES tender to palpate Special Education Paraeducator
--- OUTSIDE RECORDS SUMMARY | 2024-08-08 11:02 | XMS_ITS | Patient Health Record ---
Author Organization [employer] Address [address] [place] [address] Care Team Providers Care Gluten Settling Tender Name Role Phone RADHA PLASCENCIA Primary Care Provider José Luis Mantilla Unavailable [phone] Allergies Allergen (clinical drug ingredient) Drug/Non Drug Allergy documented on EMR Reaction Allergy Type Onset Date Status codeine Codeine Sulfate Unknown Drug Allergy A ctive Lupron Unknown Drug Allergy Active acetaminophen / oxycodone Percocet Unknown Drug Allergy Active predniSONE burning sensation with urination Drug Allergy Active tramadol Ultram Unknown Drug Allergy Active Results Component Value Reference Range Notes Hemoglobin [id number] Reviewed date:08/12/2023 09:13:03 AM Interpretation: Performing Lab:[facility] [place], [address] [facility], Phone - [phone], Director - MDShrutidry Notes/Report: Hemoglobin A1c 6.3 4.8-5.6 % . Prediabetes: 5.7 - 6.4 Diabetes: >6.4 Glycemic control for adults with diabetes: <7.0 Vitamin D, [id number] Reviewed date:08/12/2023 07:45:10 AM Interpretation: Performing Lab:[facility] [place], [address] [facility], Phone - [phone], Director - MDJodry Notes/Report: Vitamin D, 25-Hydroxy 26.0 30.0-100.0 ng/mL Vitamin D deficiency has been defined by the [place] of [employer] and an Endocrine Society practice guideline as a level of serum 25-OH vitamin D less than 20 ng/mL (1,2). The Endocrine Society went on to further define vitamin D insufficiency as a level between 21 and 29 ng/mL (2). 1. IOM ([place] of [employer]). 2010. Dietary reference intakes for calcium and D. [place]: The National Academies Press. 2. Vasyl MF, Marika NC, Shanw SORENSON, et al. Evaluation, treatment, and prevention of vitamin D deficiency: an Endocrine Society clinical practice guideline. JCEM. 2010; 96(7):1911-30. Lipid Panel-[id number] Reviewed date:08/12/2023 07:44:26 AM Interpretation: Performing Lab:[facility] [place], [address] [place] [address], Phone - [phone], Director - Leonardo Notes/Report: Cholesterol, Total 147 100-199 mg/dL Triglycerides 88 0-149 mg/dL HDL Cholesterol 40 >39 mg/dL VLDL Cholesterol Sterling 17 5-40 mg/dL LDL Chol Calc ([facility]) 90 0-99 mg/dL Hemoglobin A1c Reviewed date:03/22/2024 11:13:52 AM Interpretation: Performing Lab:[facility], [address] [place] [address], Phone - [phone], Director - Kaykay Notes/Report: Hemoglobin A1c 6.1 Reference Range: [place] Diabetes Association (ADA) Guidelines: <5.7: Decreased risk for diabetes 5.7 - 6.4: Increased risk for diabetes >6.4: Ongoing Hyperglycemia of any cause <7.0: Glycemic control for adults with diabetes Estimated Average Glucose 128 LIPASE Reviewed date:11/07/2023 07:53:57 AM Interpretation: Performing Lab: Notes/Report: [employer], [place] [address] Application Dba - Katarzyna Rosario MD LIPASE 26 13-75 U/L CREATININE WITH GFR Reviewed date:09/13/2023 12:39:01 PM Interpretation: Performing Lab: Notes/Report: [employer], [place] [address] Application Dba - Katarzyna Rosario MD CREAT 0.78 0.5-1.1 mg/dL GLOMERULAR FILTRATION RATE 93 >60 This eGFR result was calculated using the CKD-EPI 2020 Creatinine Equation COMPREHENSIVE METABOLIC PANE L Reviewed date:11/07/2023 07:53:59 AM Interpretation: Performing Lab: Notes/Report: Original Ordering Provider: DOC ER GLUCOSE 97 70-100 mg/dL Reference range applicable to fasting specimens only BUN 8 5-25 mg/dL CREAT 0.71 0.5-1.1 mg/dL GLOMERULAR FILTRATION RATE 104 >60 This eGFR result was calculated using the CKD-EPI 2020 Creatinine Equation SODIUM 139 135-145 mEq/L POTASSIUM 3.7 3.5-5.5 mmol/L CHLORIDE 105 96-110 mmol/L CO2 25 21-32 mmol/L ANION GAP 9 3-11 CALCIUM 9.0 8.5-10.5 mg/dL TOTAL PROTEIN 7.0 6.0-8.0 G/dL ALBUMIN 3.7 3.2-5.0 G/dL BILI,TOTAL 0.4 0.0-1.4 mg/dL SGOT 17 10-42 U/L SGPT 25 10-60 U/L ALK PHOS 102 42-121 U/L CBC WITH AUTO DIFF Reviewed date:11/07/2023 07:54:03 AM Interpretation: Performing Lab: Notes/Report: Original Ordering Provider: DOC [employer], a member of [address] [address] Application Dba - Katarzyna Rosario MD WBC 12.3 4.8-10.8 x10-3/uL RBC 4.4 3.8-4.8 x10-6/uL HEMOGLOBIN 13.0 11.5-16.0 g/dL HEMATOCRIT 39.5 35-47 % MCV 89.2 79-98 fL MCH 29.3 27-32 pg MCHC 32.9 32-37 g/dL RDW 13.8 11-15 % PLT COUNT 350 130-400 x10-3/uL MEAN PLATELET VOLUME 9.6 7-11 fL NRBC % AUTO 0.0 <1 % NEUT % 73.8 LYMPH % 21.6 MONO % 3.7 EOS % 0.4 BASO % 0.2 IMMATURE GRANULOCYTES % 0.3 NRBC # AUTO 0.00 <0.1 x10-3/uL ABSOLUTE NEUT 9.05 1.5-7.0 x10-3/uL LYMPH # 2.65 1-5.0 x10-3/uL MONO # 0.46 0.2-1.0 x10-3/uL EOS # 0.05 0-0.5 x10-3/uL BASO # 0.02 0-0.2 x10-3/uL IMMATURE GRANULOCYTES # 0.04 0-0.03 x10-3/uL BUN Reviewed date:09/13/2023 12:39:06 PM Interpretation: Performing Lab: Notes/Report: Original Ordering Provider: IRSAEL FRITZ MD BUN 18 5-25 mg/dL Reason For Referral Reason LEFT KNEE PAIN- DR Jennifer santoyo for Genicular artery embolization Diagnosis 1 Pain in left knee (M 25.562) Referral Organization [facility] Referring Provider First Name RADHA Referring Provider Last Name [facility] Referring Provider Speciality Internal edicine Referred Provider Specialty Intervention al Radiology General Notes faxed to Dr. Israel Fritz at [facility], F: [phone], Please reach out to the patient to schedule, Gisel Emmanuel 08/11/2023 09:47:41 AM > Referral Priority Routine Reason Evaluation and manag ement Diagnosis 1 Unspecified ovarian cyst, left side (N83.202) Referral Organization [facility] Referring Provider First Name José Luis Referring Provider Last Name Jose Rafael Referred Provider Specialty Skin Care Therapist and jeweler apprentice General Notes Referral sent to [facility] in [place] - Dept will call patient for scheduling.Onur Latraya 11/11/2023 09:41:49 AM > Referral Priority Urgent Reason Evaluation and manag ement Diagnosis 1 Infectious gastroent eritis and colitis, unspecified (A09) Referral Organization [facility] Referring Provider First Name José Luis Referring Provider Last Name Jose Rafael Referred Provider Specialty Gastroentero logy General Notes Referral sent to [facility] - Dept will call patient for scheduling.Onur Latraya 11/11/2023 09:42:58 AM > Referral Priority Urgent Reason Evaluation and manag ement - colonoscopy Diagnosis 1 Encounter for screen ing for malignant neoplasm of colon (Z12.11) Referral Organization [facility] Referring Provider First Name RADHA Referring Provider Last Name AMELIA Referring Provider Speciality Internal edicine Referred Provider Specialty Gastroentero logy General Notes Referral sent to [facility] - Office will call patient for scheduling.Onur Latraya 12/15/2023 01:19:10 PM > Referral Priority Routine Reason Evaluation and manag ement - Dr. Medrano Diagnosis 1 Obstructive sleep ap inez (adult) (pediatric) (G47.33) Referral Organization [facility] Referring Provider First Name RADHA Referring Provider Last Name AMELIA Referring Provider Speciality Internal edicine Referred Provider Specialty Sleep Medici ne General Notes Referral sent to [facility] - Office will call patient for scheduling., Dio Mohr 12/15/2023 01:21:02 PM > Referral Priority Routine Reason Evaluation and manag ement Diagnosis 1 Achilles tendinitis, right leg (M76.61) Referral Organization [facility] Referring Provider First Name RADHA Referring Provider Last Name [facility] Referring Provider Speciality Internal edicine Referred Provider Specialty Podiatry General Notes Referral sent to [facility] - Office will call patient for scheduling., Dio Mohr 12/15/2023 01:24:17 PM > Referral Priority Routine Reason please evaluate and treat Diagnosis 1 Pain in right hip (M 25.551) Referral Organization [facility] Referring Provider First Name José Luis Referring Provider Last Name Jose Rafael Referred Provider Specialty Physical The rapist General Notes referral was faxed t o [facility] Physical Therapy. Please contact patient for scheduling., Asia Mims 05/25/2024 04:49:57 PM > Referral Priority Urgent Reason please evaluate and treat Diagnosis 1 Pain in right hip (M 25.551) Referral Organization [facility] Referring Provider First Name José Luis Referring Provider Last Name Jose Rafael Referred Provider Specialty Orthopedic S urgery General Notes referral was faxed t o [facility] orthopedic. Please contact patient for scheduling.Felicita Rashida 05/25/2024 04:48:00 PM > Referral Priority Urgent Medications Medication SIG (Take, Route, Frequency, Duration) Notes Start Date End Date Status hydroCHLOROthiazide 25 MG 1 tablet in th e morning Orally Once a day for 90 days Not-Taking Nebulizer - as directed every 4 hours prn Dx: J45.909 for 30 days 03/21/2018 Active Ventolin HFA 108 (90 Base) MCG/ACT 2 puffs as needed Inhalation every 6 hrs for 90 days Active hydrOXYzine HCl 25 MG TAKE 1 TABLET BY MOUTH EVERY 8 HOURS NEEDED for 30 Active Fluticasone Propionate 50 MCG/ACT 1 spray in each nostril Nasally Once a day for 90 days Active Flovent HFA 110 MCG/ACT 2 puffs Inhalati [...] Once a day for 30 days Not-Taking Benzonatate 100 MG 1 capsule as needed Orally Three times a day for 15 days 06/21/2024 Active Linzess 72 MCG 1 capsule at least 30 minutes before the first meal of the day on an empty stomach Orally Once a day for 30 days 11/11/2023 Active Clotrimazole 1 % 1 application Externally Twice a day for 28 days 12/22/2020 Not-Taking Benzonatate 100 MG 1 capsule as needed Orally Three times a day for 7 days 06/23/2023 Not-Taking Amoxicillin 500 MG 1 capsule Orally every 8 hrs for 5 days 06/23/2023 Not-Taking Jesijxwg-Eibnplufr-AH 1 % 4 drops into affected ear Otic Three times a day for 7 days 04/20/2023 Not-Taking Amoxicillin 500 MG 1 capsule Orally every 8 hrs for 10 days 06/21/2024 Active Atorvastatin Calcium 10 MG TAKE 1 TABLET [...] a day for 30 days 05/23/2024 Not-Taking Meloxicam 15 MG 1 tablet Orally Once a day for 30 day(s) 07/08/2022 Not-Taking Lisinopril-hydroCHLOROthiazi de 20-25 MG TAKE 1 TABLET BY MOUTH EVERY DAY for 90 Not-Taking amLODIPine Besylate 5 MG 1 tablet Orally Once a day for 90 days Not-Taking Aspirin Adult Low Dose 81 MG 1 tablet Or ally Once a day Not-Taking Immunizations Vaccine Route Administration Date Status Comme nts Influenza, high dose seasonal IM Intramuscular 02/12/2019 Administered Influenza, high dose seasonal IM Intramuscular 01/09/2020 Administered Social History Tobacco Use: Social History Observation Description Date Details (start date - stop date) Former Smoker NA - NA Tobacco Use/Smoking Question Answer Notes Are you a former smoker How long has it been since you last smoked? > 10 years Additional Findings: Tobacco Non-User Tolerant e x-smoker Alcohol Screen (Audit-C) Question Answer Notes Did you have a drink containing alcohol in the p ast year? No Points 0 Interpretation Negative Problems Problem Type SNOMED Code ICD Code Onset Dates Problem Status W/U Status Risk Notes Problem Vitamin D deficiency (13673883) Vitamin D deficiency, unspecified (E55.9) Active confirmed Problem Morbid obesity (disorder) (077722385) Morbid (severe) obesity due to excess calories (E66.01) Active confirmed Problem Hyperlipidemia (50226098) Hyperlipidemia, unspecified (E78.5) Active confirmed Problem Moderate recurrent major depression (74421214) Major depressive disorder, recurrent, moderate (F33.1) Active confirmed Problem Generalized anxiety disorder (11883457) Generalized anxiety disorder (F41.1) Active confirmed Problem Obstructive sleep apnea syndrome (disorder) (99438856) Obstructive sleep apnea (adult) (pediatric) (G47.33) Active confirmed Problem Hearing loss (82798042) Unspecified hearing loss, right ear (H91.91) Active confirmed Problem Pain co-occurrent and due to varicose veins of bilateral legs (34622889323193349 ) Varicose veins of bilateral lower extremities with pain (I83.813) Active confirmed Problem Lymphedema (054880436) Lymphedema, not elsewhere classified (I89.0) Active confirmed Problem Constipation (36327784) Constipation, unspecified (K59.00) Active confirmed Problem Osteoarthritis (779006976) Polyosteoarthrit is, unspecified (M15.9) Active confirmed Problem Pain of right knee region (finding) (097607467232635) Pain in right knee (M25.561) Active confirmed Problem Pain of left knee joint (finding) (827217891564716) Pain in left knee (M25.562) Active confirmed Problem Adult health examination (819450653) Encounter for general adult medical examination without abnormal findings (Z00.00) Active confirmed Problem Pre-procedure evaluation check (324697772) Encounter for other preprocedural examination (Z01.818) Active confirmed Problem Essential hypertension (95435545) Essential (primary) hypertension (I10) Active confirmed Problem Cyst of right ovary (52250839788522215 ) Unspecified ovarian cyst, right side (N83.201) Active confirmed Problem Cyst of left ovary (68521043179070140 ) Unspecified ovarian cyst, left side (N83.202) Active confirmed Problem Cyst of ovary (26399485) Unspecified ovarian cyst, unspecified side (N83.209) Active confirmed Problem 099994858 Asthma (J45.909) Active confirmed Problem Obstructive sleep apnea (90647673) Obstructive sleep apnea (G47.33) Active confirmed Vital Signs Heart Rate 66 /min 06/21/2024 Temperature 97.1 degrees Fahrenheit 06/21/2024 Oximetry 99 % 06/21/2024 Blood pressure diastolic 72 mm Hg 06/21/2024 Height 63.50 in 06/21/2024 Blood pressure systolic 130 mm Hg 06/21/2024 Weight 238 lbs 06/21/2024 BMI 41.49 kg/m2 06/21/2024 Encounters Encounter Location Date Provider Diagnosis [address] [address] 08/11/2023 RADHA PLASCENCIA Essential (primary) hypertension I10 ; Hyperlipidemia, unspecified E78.5 ; Obstructive sleep apnea G47.33 ; Impaired fasting glucose R73.01 ; Vitamin D deficiency, unspecified E55.9 and Polyosteoarthritis, unspecified M15.[address] [address] 11/11/[address] [facility] discharge follow-up Z09 ; Infectious gastroenteritis and colitis, unspecified A09 ; Constipation, unspecified K59.00 ; Unspecified ovarian cyst, right side N83.201 ; Unspecified ovarian cyst, left side N83.202 ; Essential (primary) hypertension I10 ; Hypokalemia E87.6 ; Generalized anxiety disorder F41.1 and Obstructive sleep apnea G47.[address] [address] 12/14/2023 GARCIA GUL Essential (primary) hypertension I10 ; Hyperlipidemia, unspecified E78.5 ; Obstructive sleep apnea (adult) (pediatric) G47.33 ; Pain in right ankle and joints of right foot M25.571 and Abdominal pain R10.[address] [place] [address] 02/09/2024 GARCIA GUL Hyperglycemia, unspecified R73.9 ; Obstructive sleep apnea (adult) (pediatric) G47.33 ; Major depressive disorder, recurrent, moderate F33.1 ; Essential (primary) hypertension I10 ; Polyosteoarthritis, unspecified M15.9 ; Hyperlipidemia, unspecified E78.5 ; Obstructive sleep apnea G47.33 ; Morbid (severe) obesity due to excess calories E66.01 and Vitamin D deficiency, unspecified E55.[address] [place] [address] 05/23/2024 Ghadeer Mazloum Pain in right hip M2 5.[address] [place] [address] 06/21/2024 Ghadeer Mazloum Impaired fasting glu cose R73.01 and Acute sinusitis, unspecified J01.[address] [place] [address] 08/12/2023 GARCIA GUL Impaired fasting glu cose R73.[address] [place] [address] 11/17/2023 Ghadeer Mazloum [address] [place] [address] 12/12/[address] [place] [address] 12/30/[address] [place] [address] 02/09/[address] [place] [address] 02/16/[address] [place] [address] 03/06/[address] [place] [address] 04/11/[address] [place] [address] 05/21/[address] [place] [address] 05/25/[address] [place] [address] 05/31/2024 José Luis [address] [place] [address] 06/19/[address] [place] [address] 06/20/[address] [place] [address] 06/27/[address] [place] [address] 07/04/2024 [facility] Assessments Encounter Date Diagnosis (ICD Code) Assessment Notes Treatment Notes Treatment Clinical Notes Section Notes 08/12/2023 Impaired fasting glucose (ICD-10 - R73.01) 11/11/2023 Infectious gastroenteritis and colitis, unspecified (ICD-10 - A09) Ms. Tomlin is a 48-year-old lady with hypertension, morbid obesity, asthma, sleep apnea and anxiety disorder here for hospital discharge follow-up. Plan as follows: Infectious gastroenteritis Constipation - Patient is still taking analgesic for pain as needed. Still endorses some pain but her symptoms significantlt improved. PE is remarkable for mild tenderness throughout. Tamara states that while in the hospital, the attending recommended to follow-up with GI to r/o crohns disease given a history of polyps and recently presented with enteritis and dark stools . Though per-records GI panel was negative. Referred patient to GI for further evaluation. Constipation most likely secondary to analgesic. Start linzess for constipation. Stay hydrated. Continue on fiber diet. Unspecified cysts of left and right ovarian: - Patient is s/p hysterectomy. CT scan revealed cysts within BL adnexa more numerous on the left within the largest measuring up to 4.0cm. Ordered an U/S of pelvis to further assess the cysts and referred to obgyn. HTN: - BP is well controlled, continue on the same regimen. She is on Lisinopril-HCTZ and amlodipine. Patient has been taking HCTZ, amlodipine and Lisinopril-HCTZ. Advised on discontinuing HCTZ. Hypokalemia: - Most likely secondary to HCTZ. Patient was given potassium pills from the hospital. I will recheck COMP in one week. CHAPO: - Symptoms are controlled. Continue on the same regimen CANDICE: - States that mask from CPAP causes discomfort, advised patient to reach out for nasal cannula as an alternative. I have rendered the services for this patient under direct supervision of Dr. Plascencia, who did not see the patient but was available upon request on telephone agree with above plan Nothing in the differential warrants any red flag symptoms, but the patient was informed that should they develop any new or worsening of symptoms they need to go to the ER immediately. 11/11/2023 Hospital discharge follow-up (ICD-10 - Z09) Ms. Tomlin is a 48-year-old lady with hypertension, morbid obesity, asthma, sleep apnea and anxiety disorder here for hospital discharge follow-up. Plan as follows: Infectious gastroenteritis Constipation - Patient is still taking analgesic for pain as needed. Still endorses some pain but her symptoms significantlt improved. PE is remarkable for mild tenderness throughout. Tamara states that while in the hospital, the attending recommended to follow-up with GI to r/o crohns disease given a history of polyps and recently presented with enteritis and dark stools . Though per-records GI panel was negative. Referred patient to GI for further evaluation. Constipation most likely secondary to analgesic. Start linzess for constipation. Stay hydrated. Continue on fiber diet. Unspecified cysts of left and right ovarian: - Patient is s/p hysterectomy. CT scan revealed cysts within BL adnexa more numerous on the left within the largest measuring up to 4.0cm. Ordered an U/S of pelvis to further assess the cysts and referred to obgyn. HTN: - BP is well controlled, continue on the same regimen. She is on Lisinopril-HCTZ and amlodipine. Patient has been taking HCTZ, amlodipine and Lisinopril-HCTZ. Advised on discontinuing HCTZ. Hypokalemia: - Most likely secondary to HCTZ. Patient was given potassium pills from the hospital. I will recheck COMP in one week. CHAPO: - Symptoms are controlled. Continue on the same regimen CANDICE: - States that mask from CPAP causes discomfort, advised patient to reach out for nasal cannula as an alternative. I have rendered the services for this patient under direct supervision of Dr. Plascencia, who did not see the patient but was available upon request on telephone agree with above plan Nothing in the differential warrants any red flag symptoms, but the patient was informed that should they develop any new or worsening of symptoms they need to go to the ER immediately. 12/14/2023 Hyperlipidemia, unspecified (ICD-10 - E78.5) Ms. Tomlin is a 48-year-old lady with hypertension, morbid obesity, asthma, sleep apnea and anxiety disorder here complaining of a lump on her right ankle. Plan is as follows: Hypertension. Her blood pressure is running high in the office today. Cut back on sodium intake. Advised appropriate hydration, cardio exercises and weight loss. Start HCTZ 25 MG once a day. Hyperlipidemia. Continue on current regimen and check lipid panel Asthma. She is stable on inhalers. she can also use gvwc-ipl-nsihxpt antihistamines CANDICE. She sleeps well on CPAP. Referred to Dr Medrano at [facility] Polyosteoarthriti s. She is status post arthroscopic procedure left knee joint with no significant improvement. She still complains of pain. She was advised to lose weight and have left total knee replaced. Meanwhile she can continue Tylenol arthritis and she can use topical Biofreeze 3 times a day. Major depressive disorder. Mood stable on current regimen. She sees counsellor and psychiatrist. Ankle pain, right. Calcification of the right Achilles tendon. Referred to Podiatry Vitamin D deficiency. Vitamin D 17.5 which is low. She may take Vitamin D supplements. Check levels. Morbid obesity. Advised dietary restrictions and regimental exercise. Goal is to lose 5-6 lbs a month. Unfortunately her insurance does not cover weight management medication. She has tried dietary modification and lifestyle changes with no significant improvement. She will benefit from bariatric surgery which she is not interested at this point in time and we will review again Abdominal pain. She was seen at ER on October for abdominal pain and her exams were negative and was advised to follow up with GI. Referred to GI. General health concerns discussed with patient. Scribe services used to formulate this note under HIPAA compliance and under [place] law mandated for scribe services. Patient aware of service. Verbal consent and written consent taken from the patient. Patient understands and verbalizes understanding of the scribes services and all questions answered regarding scribes services. Patient agrees to use of scribes services. 12/14/2023 Essential (primary) hypertension (ICD-10 - I10) Ms. Tomlin is a 48-year-old lady with hypertension, morbid obesity, asthma, sleep apnea and anxiety disorder here complaining of a lump on her right ankle. Plan is as follows: Hypertension. Her blood pressure is running high in the office today. Cut back on sodium intake. Advised appropriate hydration, cardio exercises and weight loss. Start HCTZ 25 MG once a day. Hyperlipidemia. Continue on current regimen and check lipid panel Asthma. She is stable on inhalers. she can also use qdrv-zbo-bbpwxlz antihistamines CANDICE. She sleeps well on CPAP. Referred to Dr Medrano at [facility] Polyosteoarthriti s. She is status post arthroscopic procedure left knee joint with no significant improvement. She still complains of pain. She was advised to lose weight and have left total knee replaced. Meanwhile she can continue Tylenol arthritis and she can use topical Biofreeze 3 times a day. Major depressive disorder. Mood stable on current regimen. She sees counsellor and psychiatrist. Ankle pain, right. Calcification of the right Achilles tendon. Referred to Podiatry Vitamin D deficiency. Vitamin D 17.5 which is low. She may take Vitamin D supplements. Check levels. Morbid obesity. Advised dietary restrictions and regimental exercise. Goal is to lose 5-6 lbs a month. Unfortunately her insurance does not cover weight management medication. She has tried dietary modification and lifestyle changes with no significant improvement. She will benefit from bariatric surgery which she is not interested at this point in time and we will review again Abdominal pain. She was seen at ER on October for abdominal pain and her exams were negative and was advised to follow up with GI. Referred to GI. General health concerns discussed with patient. Scribe services used to formulate this note under HIPAA compliance and under [place] law mandated for scribe services. Patient aware of service. Verbal consent and written consent taken from the patient. Patient understands and verbalizes understanding of the scribes services and all questions answered regarding scribes services. Patient agrees to use of scribes services. 02/09/2024 Hyperglycemia, unspecified (ICD-10 - R73.9) Ms. Tomlin is a 49-year-old lady with hypertension, morbid obesity, asthma, sleep apnea and anxiety disorder here for follow up. Plan is as follows: Hypertension. Blood pressure well controlled on HCTZ 25 MG once a day. Hyperlipidemia. Continue on current regimen and check lipid panel Asthma. She is stable on inhalers. she can also use oooz-dfw-flduuhk antihistamines CANDICE/shortness of breath. She sleeps well on CPAP. She recently saw Pulmonology at [facility] where she was started with Furosemide which she did not tolerate and she is now on HCTZ. Polyosteoarthriti s. She is status post arthroscopic procedure left knee joint with no significant improvement. She still complains of pain. She was advised to lose weight and have left total knee replaced. Meanwhile she can continue Tylenol arthritis and she can use topical Biofreeze 3 times a day. Major depressive disorder. Mood stable on current regimen. She sees counsellor and psychiatrist. Hyperglycemia. A1c 6.3. Dietary restrictions, regimental exercise and weight loss advised. check A1c. Morbid obesity. Advised dietary restrictions and regimental exercise. Goal is to lose 5-6 lbs a month. Unfortunately her insurance does not cover weight management medication. She has tried dietary modification and lifestyle changes with no significant improvement. She will benefit from bariatric surgery which she is not interested at this point in time and we will review again Vitamin D deficiency. Vitamin D 26.0 which is low. She may take Vitamin D supplements. Check levels. General health concerns discussed with patient. Scribe services used to formulate this note under HIPAA compliance and under [place] law mandated for scribe services. Patient aware of service. Verbal consent and written consent taken from the patient. Patient understands and verbalizes understanding of the scribes services and all questions answered regarding scribes services. Patient agrees to use of scribes services. 06/21/2024 Impaired fasting glucose (ICD-10 - R73.01) Ms. Tomlin is a 49-year-old lady with hypertension, morbid [...] the patient but was available upon request 05/23/2024 Pain in right hip (ICD-10 - M25.551) Ms. Tomlin is a 49-year-old lady with hypertension, morbid obesity, asthma, sleep apnea and anxiety disorder here for Right hip pain. Plan as follows Pain in the right hip - Differential diagnosis, osteoarthritis, SI joint. Physical examination is remarkable for positive FABR test, limited range of motion of the right hip. No tenderness to palpate, no erythema, no edema. We will obtain x-ray of the hip To rule out any abnormalities. I will also start patient on prednisone and baclofen. I have also referred patient to physical therapy and orthopedic for further management including steroid injections. I have rendered the services for this patient under direct supervision of Dr. Plascencia, who did not see the patient but was available upon request 08/11/2023 Hyperlipidemia, unspecified (ICD-10 - E78.5) Ms. Tomlin is a 48-year-old lady with hypertension, morbid obesity, asthma, sleep apnea and anxiety disorder here for follow up. Plan is as follows: Hypertension. Blood pressure well controlled on current regimen. Hyperlipidemia. Total cholesterol 219. LDL 148. Non HDL 180. Trigylerides 158, which were high. Continue on current regimen and check lipid panel Asthma. She is stable on inhalers. she can also use jluj-cwc-dczmbib antihistamines CANDICE. She sleeps well on CPAP. Polyosteoarthriti s. She is status post arthroscopic procedure left knee joint with no significant improvement. She still complains of pain. She was advised to lose weight and have left total knee replaced. We will give her referral to interventional radiology for genicular artery embolization to Dr. Fritz. Meanwhile she can continue Tylenol arthritis and she can use topical Biofreeze 3 times a day. Major depressive disorder. Mood stable on current regimen. She sees counsellor and psychiatrist. Vitamin D deficiency. Vitamin D 17.5 which is low. She may take Vitamin D supplements. Check levels. Morbid obesity. Advised dietary restrictions and regimental exercise. Goal is to lose 5-6 lbs a month. unfortunately her insurance does not cover weight management medication. She has tried dietary modification and lifestyle changes with no significant improvement. She will benefit from bariatric surgery which she is not interested at this point in time and we will review again Impaired fasting glucose. A1c 5.8. Fasting sugars 104. Dietary restrictions, regimental exercise and weight loss advised. Check A1c. Blood work reviewed with patient and questions answered. Screening blood work before next appointment. General health concerns discussed with patient. Scribe services used to formulate this note under HIPAA compliance and under [place] law mandated for scribe services. Patient aware of service. Verbal consent and written consent taken from the patient. Patient understands and verbalizes understanding of the scribes services and all questions answered regarding scribes services. Patient agrees to use of scribes services. 08/11/2023 Essential (primary) hypertension (ICD-10 - I10) Ms. Tomlin is a 48-year-old lady with hypertension, morbid obesity, asthma, sleep apnea and anxiety disorder here for follow up. Plan is as follows: Hypertension. Blood pressure well controlled on current regimen. Hyperlipidemia. Total cholesterol 219. LDL 148. Non HDL 180. Trigylerides 158, which were high. Continue on current regimen and check lipid panel Asthma. She is stable on inhalers. she can also use agrs-sob-ynpgfeg antihistamines CANDICE. She sleeps well on CPAP. Polyosteoarthriti s. She is status post arthroscopic procedure left knee joint with no significant improvement. She still complains of pain. She was advised to lose weight and have left total knee replaced. We will give her referral to interventional radiology for genicular artery embolization to Dr. Fritz. Meanwhile she can continue Tylenol arthritis and she can use topical Biofreeze 3 times a day. Major depressive disorder. Mood stable on current regimen. She sees counsellor and psychiatrist. Vitamin D deficiency. Vitamin D 17.5 which is low. She may take Vitamin D supplements. Check levels. Morbid obesity. Advised dietary restrictions and regimental exercise. Goal is to lose 5-6 lbs a month. unfortunately her insurance does not cover weight management medication. She has tried dietary modification and lifestyle changes with no significant improvement. She will benefit from bariatric surgery which she is not interested at this point in time and we will review again Impaired fasting glucose. A1c 5.8. Fasting sugars 104. Dietary restrictions, regimental exercise and weight loss advised. Check A1c. Blood work reviewed with patient and questions answered. Screening blood work before next appointment. General health concerns discussed with patient. Scribe services used to formulate this note under HIPAA compliance and under [place] law mandated for scribe services. Patient aware of service. Verbal consent and written consent taken from the patient. Patient understands and verbalizes understanding of the scribes services and all questions answered regarding scribes services. Patient agrees to use of scribes services. 08/11/2023 Obstructive sleep apnea (ICD-10 - G47.33) Ms. Tomlin is a 48-year-old lady with hypertension, morbid obesity, asthma, sleep apnea and anxiety disorder here for follow up. Plan is as follows: Hypertension. Blood pressure well controlled on current regimen. Hyperlipidemia. Total cholesterol 219. LDL 148. Non HDL 180. Trigylerides 158, which were high. Continue on current regimen and check lipid panel Asthma. She is stable on inhalers. she can also use pbvc-kon-grgrngu antihistamines CANDICE. She sleeps well on CPAP. Polyosteoarthriti s. She is status post arthroscopic procedure left knee joint with no significant improvement. She still complains of pain. She was advised to lose weight and have left total knee replaced. We will give her referral to interventional radiology for genicular artery embolization to Dr. Fritz. Meanwhile she can continue Tylenol arthritis and she can use topical Biofreeze 3 times a day. Major depressive disorder. Mood stable on current regimen. She sees counsellor and psychiatrist. Vitamin D deficiency. Vitamin D 17.5 which is low. She may take Vitamin D supplements. Check levels. Morbid obesity. Advised dietary restrictions and regimental exercise. Goal is to lose 5-6 lbs a month. unfortunately her insurance does not cover weight management medication. She has tried dietary modification and lifestyle changes with no significant improvement. She will benefit from bariatric surgery which she is not interested at this point in time and we will review again Impaired fasting glucose. A1c 5.8. Fasting sugars 104. Dietary restrictions, regimental exercise and weight loss advised. Check A1c. Blood work reviewed with patient and questions answered. Screening blood work before next appointment. General health concerns discussed with patient. Scribe services used to formulate this note under HIPAA compliance and under [place] law mandated for scribe services. Patient aware of service. Verbal consent and written consent taken from the patient. Patient understands and verbalizes understanding of the scribes services and all questions answered regarding scribes services. Patient agrees to use of scribes services. 06/21/2024 Acute sinusitis, unspecified (ICD-10 - J01.90) Ms. Tomlin is a 49-year-old lady with hypertension, morbid [...] the patient but was available upon request 02/09/2024 Obstructive sleep apnea (adult) (pediatric) (ICD-10 - G47.33) Ms. Tomlin is a 49-year-old lady with hypertension, morbid obesity, asthma, sleep apnea and anxiety disorder here for follow up. Plan is as follows: Hypertension. Blood pressure well controlled on HCTZ 25 MG once a day. Hyperlipidemia. Continue on current regimen and check lipid panel Asthma. She is stable on inhalers. she can also use flfb-vug-tbtijqt antihistamines CANDICE/shortness of breath. She sleeps well on CPAP. She recently saw Pulmonology at [facility] where she was started with Furosemide which she did not tolerate and she is now on HCTZ. Polyosteoarthriti s. She is status post arthroscopic procedure left knee joint with no significant improvement. She still complains of pain. She was advised to lose weight and have left total knee replaced. Meanwhile she can continue Tylenol arthritis and she can use topical Biofreeze 3 times a day. Major depressive disorder. Mood stable on current regimen. She sees counsellor and psychiatrist. Hyperglycemia. A1c 6.3. Dietary restrictions, regimental exercise and weight loss advised. check A1c. Morbid obesity. Advised dietary restrictions and regimental exercise. Goal is to lose 5-6 lbs a month. Unfortunately her insurance does not cover weight management medication. She has tried dietary modification and lifestyle changes with no significant improvement. She will benefit from bariatric surgery which she is not interested at this point in time and we will review again Vitamin D deficiency. Vitamin D 26.0 which is low. She may take Vitamin D supplements. Check levels. General health concerns discussed with patient. Scribe services used to formulate this note under HIPAA compliance and under [place] law mandated for scribe services. Patient aware of service. Verbal consent and written consent taken from the patient. Patient understands and verbalizes understanding of the scribes services and all questions answered regarding scribes services. Patient agrees to use of scribes services. 12/14/2023 Obstructive sleep apnea (adult) (pediatric) (ICD-10 - G47.33) Ms. Tomlin is a 48-year-old lady with hypertension, morbid obesity, asthma, sleep apnea and anxiety disorder here complaining of a lump on her right ankle. Plan is as follows: Hypertension. Her blood pressure is running high in the office today. Cut back on sodium intake. Advised appropriate hydration, cardio exercises and weight loss. Start HCTZ 25 MG once a day. Hyperlipidemia. Continue on current regimen and check lipid panel Asthma. She is stable on inhalers. she can also use crlf-zbh-hksdtyn antihistamines CANDICE. She sleeps well on CPAP. Referred to Dr Medrano at [facility] Polyosteoarthriti s. She is status post arthroscopic procedure left knee joint with no significant improvement. She still complains of pain. She was advised to lose weight and have left total knee replaced. Meanwhile she can continue Tylenol arthritis and she can use topical Biofreeze 3 times a day. Major depressive disorder. Mood stable on current regimen. She sees counsellor and psychiatrist. Ankle pain, right. Calcification of the right Achilles tendon. Referred to Podiatry Vitamin D deficiency. Vitamin D 17.5 which is low. She may take Vitamin D supplements. Check levels. Morbid obesity. Advised dietary restrictions and regimental exercise. Goal is to lose 5-6 lbs a month. Unfortunately her insurance does not cover weight management medication. She has tried dietary modification and lifestyle changes with no significant improvement. She will benefit from bariatric surgery which she is not interested at this point in time and we will review again Abdominal pain. She was seen at ER on October for abdominal pain and her exams were negative and was advised to follow up with GI. Referred to GI. General health concerns discussed with patient. Scribe services used to formulate this note under HIPAA compliance and under [place] law mandated for scribe services. Patient aware of service. Verbal consent and written consent taken from the patient. Patient understands and verbalizes understanding of the scribes services and all questions answered regarding scribes services. Patient agrees to use of scribes services. 11/11/2023 Constipation, unspecified (ICD-10 - K59.00) Ms. Tomlin is a 48-year-old lady with hypertension, morbid obesity, asthma, sleep apnea and anxiety disorder here for hospital discharge follow-up. Plan as follows: Infectious gastroenteritis Constipation - Patient is still taking analgesic for pain as needed. Still endorses some pain but her symptoms significantlt improved. PE is remarkable for mild tenderness throughout. Tamara states that while in the hospital, the attending recommended to follow-up with GI to r/o crohns disease given a history of polyps and recently presented with enteritis and dark stools . Though per-records GI panel was negative. Referred patient to GI for further evaluation. Constipation most likely secondary to analgesic. Start linzess for constipation. Stay hydrated. Continue on fiber diet. Unspecified cysts of left and right ovarian: - Patient is s/p hysterectomy. CT scan revealed cysts within BL adnexa more numerous on the left within the largest measuring up to 4.0cm. Ordered an U/S of pelvis to further assess the cysts and referred to obgyn. HTN: - BP is well controlled, continue on the same regimen. She is on Lisinopril-HCTZ and amlodipine. Patient has been taking HCTZ, amlodipine and Lisinopril-HCTZ. Advised on discontinuing HCTZ. Hypokalemia: - Most likely secondary to HCTZ. Patient was given potassium pills from the hospital. I will recheck COMP in one week. CHAPO: - Symptoms are controlled. Continue on the same regimen CANDICE: - States that mask from CPAP causes discomfort, advised patient to reach out for nasal cannula as an alternative. I have rendered the services for this patient under direct supervision of Dr. Plascencia, who did not see the patient but was available upon request on telephone agree with above plan Nothing in the differential warrants any red flag symptoms, but the patient was informed that should they develop any new or worsening of symptoms they need to go to the ER immediately. 11/11/2023 Unspecified ovarian cyst, right side (ICD-10 - N83.201) Ms. Tomlin is a 48-year-old lady with hypertension, morbid obesity, asthma, sleep apnea and anxiety disorder here for hospital discharge follow-up. Plan as follows: Infectious gastroenteritis Constipation - Patient is still taking analgesic for pain as needed. Still endorses some pain but her symptoms significantlt improved. PE is remarkable for mild tenderness throughout. Tamara states that while in the hospital, the attending recommended to follow-up with GI to r/o crohns disease given a history of polyps and recently presented with enteritis and dark stools . Though per-records GI panel was negative. Referred patient to GI for further evaluation. Constipation most likely secondary to analgesic. Start linzess for constipation. Stay hydrated. Continue on fiber diet. Unspecified cysts of left and right ovarian: - Patient is s/p hysterectomy. CT scan revealed cysts within BL adnexa more numerous on the left within the largest measuring up to 4.0cm. Ordered an U/S of pelvis to further assess the cysts and referred to obgyn. HTN: - BP is well controlled, continue on the same regimen. She is on Lisinopril-HCTZ and amlodipine. Patient has been taking HCTZ, amlodipine and Lisinopril-HCTZ. Advised on discontinuing HCTZ. Hypokalemia: - Most likely secondary to HCTZ. Patient was given potassium pills from the hospital. I will recheck COMP in one week. CHAPO: - Symptoms are controlled. Continue on the same regimen CANDICE: - States that mask from CPAP causes discomfort, advised patient to reach out for nasal cannula as an alternative. I have rendered the services for this patient under direct supervision of Dr. Plascencia, who did not see the patient but was available upon request on telephone agree with above plan Nothing in the differential warrants any red flag symptoms, but the patient was informed that should they develop any new or worsening of symptoms they need to go to the ER immediately. 02/09/2024 Major depressive disorder, recurrent, moderate (ICD-10 - F33.1) Ms. Tomlin is a 49-year-old lady with hypertension, morbid obesity, asthma, sleep apnea and anxiety disorder here for follow up. Plan is as follows: Hypertension. Blood pressure well controlled on HCTZ 25 MG once a day. Hyperlipidemia. Continue on current regimen and check lipid panel Asthma. She is stable on inhalers. she can also use olcf-qkc-mmlybcr antihistamines CANDICE/shortness of breath. She sleeps well on CPAP. She recently saw Pulmonology at [facility] where she was started with Furosemide which she did not tolerate and she is now on HCTZ. Polyosteoarthriti s. She is status post arthroscopic procedure left knee joint with no significant improvement. She still complains of pain. She was advised to lose weight and have left total knee replaced. Meanwhile she can continue Tylenol arthritis and she can use topical Biofreeze 3 times a day. Major depressive disorder. Mood stable on current regimen. She sees counsellor and psychiatrist. Hyperglycemia. A1c 6.3. Dietary restrictions, regimental exercise and weight loss advised. check A1c. Morbid obesity. Advised dietary restrictions and regimental exercise. Goal is to lose 5-6 lbs a month. Unfortunately her insurance does not cover weight management medication. She has tried dietary modification and lifestyle changes with no significant improvement. She will benefit from bariatric surgery which she is not interested at this point in time and we will review again Vitamin D deficiency. Vitamin D 26.0 which is low. She may take Vitamin D supplements. Check levels. General health concerns discussed with patient. Scribe services used to formulate this note under HIPAA compliance and under [place] law mandated for scribe services. Patient aware of service. Verbal consent and written consent taken from the patient. Patient understands and verbalizes understanding of the scribes services and all questions answered regarding scribes services. Patient agrees to use of scribes services. 12/14/2023 Pain in right ankle and joints of right foot (ICD-10 - M25.571) Ms. Tomlin is a 48-year-old lady with hypertension, morbid obesity, asthma, sleep apnea and anxiety disorder here complaining of a lump on her right ankle. Plan is as follows: Hypertension. Her blood pressure is running high in the office today. Cut back on sodium intake. Advised appropriate hydration, cardio exercises and weight loss. Start HCTZ 25 MG once a day. Hyperlipidemia. Continue on current regimen and check lipid panel Asthma. She is stable on inhalers. she can also use yoqo-opy-kmsgmmz antihistamines CANDICE. She sleeps well on CPAP. Referred to Dr Medrano at [facility] Polyosteoarthriti s. She is status post arthroscopic procedure left knee joint with no significant improvement. She still complains of pain. She was advised to lose weight and have left total knee replaced. Meanwhile she can continue Tylenol arthritis and she can use topical Biofreeze 3 times a day. Major depressive disorder. Mood stable on current regimen. She sees counsellor and psychiatrist. Ankle pain, right. Calcification of the right Achilles tendon. Referred to Podiatry Vitamin D deficiency. Vitamin D 17.5 which is low. She may take Vitamin D supplements. Check levels. Morbid obesity. Advised dietary restrictions and regimental exercise. Goal is to lose 5-6 lbs a month. Unfortunately her insurance does not cover weight management medication. She has tried dietary modification and lifestyle changes with no significant improvement. She will benefit from bariatric surgery which she is not interested at this point in time and we will review again Abdominal pain. She was seen at ER on October for abdominal pain and her exams were negative and was advised to follow up with GI. Referred to GI. General health concerns discussed with patient. Scribe services used to formulate this note under HIPAA compliance and under [place] law mandated for scribe services. Patient aware of service. Verbal consent and written consent taken from the patient. Patient understands and verbalizes understanding of the scribes services and all questions answered regarding scribes services. Patient agrees to use of scribes services. 08/11/2023 Impaired fasting glucose (ICD-10 - R73.01) Ms. Tomlin is a 48-year-old lady with hypertension, morbid obesity, asthma, sleep apnea and anxiety disorder here for follow up. Plan is as follows: Hypertension. Blood pressure well controlled on current regimen. Hyperlipidemia. Total cholesterol 219. LDL 148. Non HDL 180. Trigylerides 158, which were high. Continue on current regimen and check lipid panel Asthma. She is stable on inhalers. she can also use bgro-faj-qpoovqo antihistamines CANDICE. She sleeps well on CPAP. Polyosteoarthriti s. She is status post arthroscopic procedure left knee joint with no significant improvement. She still complains of pain. She was advised to lose weight and have left total knee replaced. We will give her referral to interventional radiology for genicular artery embolization to Dr. Fritz. Meanwhile she can continue Tylenol arthritis and she can use topical Biofreeze 3 times a day. Major depressive disorder. Mood stable on current regimen. She sees counsellor and psychiatrist. Vitamin D deficiency. Vitamin D 17.5 which is low. She may take Vitamin D supplements. Check levels. Morbid obesity. Advised dietary restrictions and regimental exercise. Goal is to lose 5-6 lbs a month. unfortunately her insurance does not cover weight management medication. She has tried dietary modification and lifestyle changes with no significant improvement. She will benefit from bariatric surgery which she is not interested at this point in time and we will review again Impaired fasting glucose. A1c 5.8. Fasting sugars 104. Dietary restrictions, regimental exercise and weight loss advised. Check A1c. Blood work reviewed with patient and questions answered. Screening blood work before next appointment. General health concerns discussed with patient. Scribe services used to formulate this note under HIPAA compliance and under [place] law mandated for scribe services. Patient aware of service. Verbal consent and written consent taken from the patient. Patient understands and verbalizes understanding of the scribes services and all questions answered regarding scribes services. Patient agrees to use of scribes services. 08/11/2023 Vitamin D deficiency, unspecified (ICD-10 - E55.9) Ms. Tomlin is a 48-year-old lady with hypertension, morbid obesity, asthma, sleep apnea and anxiety disorder here for follow up. Plan is as follows: Hypertension. Blood pressure well controlled on current regimen. Hyperlipidemia. Total cholesterol 219. LDL 148. Non HDL 180. Trigylerides 158, which were high. Continue on current regimen and check lipid panel Asthma. She is stable on inhalers. she can also use isqz-mxj-uavwkjg antihistamines CANDICE. She sleeps well on CPAP. Polyosteoarthriti s. She is status post arthroscopic procedure left knee joint with no significant improvement. She still complains of pain. She was advised to lose weight and have left total knee replaced. We will give her referral to interventional radiology for genicular artery embolization to Dr. Fritz. Meanwhile she can continue Tylenol arthritis and she can use topical Biofreeze 3 times a day. Major depressive disorder. Mood stable on current regimen. She sees counsellor and psychiatrist. Vitamin D deficiency. Vitamin D 17.5 which is low. She may take Vitamin D supplements. Check levels. Morbid obesity. Advised dietary restrictions and regimental exercise. Goal is to lose 5-6 lbs a month. unfortunately her insurance does not cover weight management medication. She has tried dietary modification and lifestyle changes with no significant improvement. She will benefit from bariatric surgery which she is not interested at this point in time and we will review again Impaired fasting glucose. A1c 5.8. Fasting sugars 104. Dietary restrictions, regimental exercise and weight loss advised. Check A1c. Blood work reviewed with patient and questions answered. Screening blood work before next appointment. General health concerns discussed with patient. Scribe services used to formulate this note under HIPAA compliance and under [place] law mandated for scribe services. Patient aware of service. Verbal consent and written consent taken from the patient. Patient understands and verbalizes understanding of the scribes services and all questions answered regarding scribes services. Patient agrees to use of scribes services. 02/09/2024 Essential (primary) hypertension (ICD-10 - I10) Ms. Tomlin is a 49-year-old lady with hypertension, morbid obesity, asthma, sleep apnea and anxiety disorder here for follow up. Plan is as follows: Hypertension. Blood pressure well controlled on HCTZ 25 MG once a day. Hyperlipidemia. Continue on current regimen and check lipid panel Asthma. She is stable on inhalers. she can also use uemp-zin-nklbier antihistamines CANDICE/shortness of breath. She sleeps well on CPAP. She recently saw Pulmonology at [facility] where she was started with Furosemide which she did not tolerate and she is now on HCTZ. Polyosteoarthriti s. She is status post arthroscopic procedure left knee joint with no significant improvement. She still complains of pain. She was advised to lose weight and have left total knee replaced. Meanwhile she can continue Tylenol arthritis and she can use topical Biofreeze 3 times a day. Major depressive disorder. Mood stable on current regimen. She sees counsellor and psychiatrist. Hyperglycemia. A1c 6.3. Dietary restrictions, regimental exercise and weight loss advised. check A1c. Morbid obesity. Advised dietary restrictions and regimental exercise. Goal is to lose 5-6 lbs a month. Unfortunately her insurance does not cover weight management medication. She has tried dietary modification and lifestyle changes with no significant improvement. She will benefit from bariatric surgery which she is not interested at this point in time and we will review again Vitamin D deficiency. Vitamin D 26.0 which is low. She may take Vitamin D supplements. Check levels. General health concerns discussed with patient. Scribe services used to formulate this note under HIPAA compliance and under [place] law mandated for scribe services. Patient aware of service. Verbal consent and written consent taken from the patient. Patient understands and verbalizes understanding of the scribes services and all questions answered regarding scribes services. Patient agrees to use of scribes services. 12/14/2023 Abdominal pain (ICD-10 - R10.9) Ms. Tomlin is a 48-year-old lady with hypertension, morbid obesity, asthma, sleep apnea and anxiety disorder here complaining of a lump on her right ankle. Plan is as follows: Hypertension. Her blood pressure is running high in the office today. Cut back on sodium intake. Advised appropriate hydration, cardio exercises and weight loss. Start HCTZ 25 MG once a day. Hyperlipidemia. Continue on current regimen and check lipid panel Asthma. She is stable on inhalers. she can also use kqqw-fed-fmxnlal antihistamines CANDICE. She sleeps well on CPAP. Referred to Dr Medrano at [facility] Polyosteoarthriti s. She is status post arthroscopic procedure left knee joint with no significant improvement. She still complains of pain. She was advised to lose weight and have left total knee replaced. Meanwhile she can continue Tylenol arthritis and she can use topical Biofreeze 3 times a day. Major depressive disorder. Mood stable on current regimen. She sees counsellor and psychiatrist. Ankle pain, right. Calcification of the right Achilles tendon. Referred to Podiatry Vitamin D deficiency. Vitamin D 17.5 which is low. She may take Vitamin D supplements. Check levels. Morbid obesity. Advised dietary restrictions and regimental exercise. Goal is to lose 5-6 lbs a month. Unfortunately her insurance does not cover weight management medication. She has tried dietary modification and lifestyle changes with no significant improvement. She will benefit from bariatric surgery which she is not interested at this point in time and we will review again Abdominal pain. She was seen at ER on October for abdominal pain and her exams were negative and was advised to follow up with GI. Referred to GI. General health concerns discussed with patient. Scribe services used to formulate this note under HIPAA compliance and under [place] law mandated for scribe services. Patient aware of service. Verbal consent and written consent taken from the patient. Patient understands and verbalizes understanding of the scribes services and all questions answered regarding scribes services. Patient agrees to use of scribes services. 11/11/2023 Unspecified ovarian cyst, left side (ICD-10 - N83.202) Ms. Tomlin is a 48-year-old lady with hypertension, morbid obesity, asthma, sleep apnea and anxiety disorder here for hospital discharge follow-up. Plan as follows: Infectious gastroenteritis Constipation - Patient is still taking analgesic for pain as needed. Still endorses some pain but her symptoms significantlt improved. PE is remarkable for mild tenderness throughout. Tamara states that while in the hospital, the attending recommended to follow-up with GI to r/o crohns disease given a history of polyps and recently presented with enteritis and dark stools . Though per-records GI panel was negative. Referred patient to GI for further evaluation. Constipation most likely secondary to analgesic. Start linzess for constipation. Stay hydrated. Continue on fiber diet. Unspecified cysts of left and right ovarian: - Patient is s/p hysterectomy. CT scan revealed cysts within BL adnexa more numerous on the left within the largest measuring up to 4.0cm. Ordered an U/S of pelvis to further assess the cysts and referred to obgyn. HTN: - BP is well controlled, continue on the same regimen. She is on Lisinopril-HCTZ and amlodipine. Patient has been taking HCTZ, amlodipine and Lisinopril-HCTZ. Advised on discontinuing HCTZ. Hypokalemia: - Most likely secondary to HCTZ. Patient was given potassium pills from the hospital. I will recheck COMP in one week. CHAPO: - Symptoms are controlled. Continue on the same regimen CANDICE: - States that mask from CPAP causes discomfort, advised patient to reach out for nasal cannula as an alternative. I have rendered the services for this patient under direct supervision of Dr. Plascencia, who did not see the patient but was available upon request on telephone agree with above plan Nothing in the differential warrants any red flag symptoms, but the patient was informed that should they develop any new or worsening of symptoms they need to go to the ER immediately. 11/11/2023 Essential (primary) hypertension (ICD-10 - I10) Ms. Tomlin is a 48-year-old lady with hypertension, morbid obesity, asthma, sleep apnea and anxiety disorder here for hospital discharge follow-up. Plan as follows: Infectious gastroenteritis Constipation - Patient is still taking analgesic for pain as needed. Still endorses some pain but her symptoms significantlt improved. PE is remarkable for mild tenderness throughout. Tamara states that while in the hospital, the attending recommended to follow-up with GI to r/o crohns disease given a history of polyps and recently presented with enteritis and dark stools . Though per-records GI panel was negative. Referred patient to GI for further evaluation. Constipation most likely secondary to analgesic. Start linzess for constipation. Stay hydrated. Continue on fiber diet. Unspecified cysts of left and right ovarian: - Patient is s/p hysterectomy. CT scan revealed cysts within BL adnexa more numerous on the left within the largest measuring up to 4.0cm. Ordered an U/S of pelvis to further assess the cysts and referred to obgyn. HTN: - BP is well controlled, continue on the same regimen. She is on Lisinopril-HCTZ and amlodipine. Patient has been taking HCTZ, amlodipine and Lisinopril-HCTZ. Advised on discontinuing HCTZ. Hypokalemia: - Most likely secondary to HCTZ. Patient was given potassium pills from the hospital. I will recheck COMP in one week. CHAPO: - Symptoms are controlled. Continue on the same regimen CANDICE: - States that mask from CPAP causes discomfort, advised patient to reach out for nasal cannula as an alternative. I have rendered the services for this patient under direct supervision of Dr. Plascencia, who did not see the patient but was available upon request on telephone agree with above plan Nothing in the differential warrants any red flag symptoms, but the patient was informed that should they develop any new or worsening of symptoms they need to go to the ER immediately. 02/09/2024 Polyosteoarthritis , unspecified (ICD-10 - M15.9) Ms. Tomlin is a 49-year-old lady with hypertension, morbid obesity, asthma, sleep apnea and anxiety disorder here for follow up. Plan is as follows: Hypertension. Blood pressure well controlled on HCTZ 25 MG once a day. Hyperlipidemia. Continue on current regimen and check lipid panel Asthma. She is stable on inhalers. she can also use weea-olo-ibqfsex antihistamines CANDICE/shortness of breath. She sleeps well on CPAP. She recently saw Pulmonology at [facility] where she was started with Furosemide which she did not tolerate and she is now on HCTZ. Polyosteoarthriti s. She is status post arthroscopic procedure left knee joint with no significant improvement. She still complains of pain. She was advised to lose weight and have left total knee replaced. Meanwhile she can continue Tylenol arthritis and she can use topical Biofreeze 3 times a day. Major depressive disorder. Mood stable on current regimen. She sees counsellor and psychiatrist. Hyperglycemia. A1c 6.3. Dietary restrictions, regimental exercise and weight loss advised. check A1c. Morbid obesity. Advised dietary restrictions and regimental exercise. Goal is to lose 5-6 lbs a month. Unfortunately her insurance does not cover weight management medication. She has tried dietary modification and lifestyle changes with no significant improvement. She will benefit from bariatric surgery which she is not interested at this point in time and we will review again Vitamin D deficiency. Vitamin D 26.0 which is low. She may take Vitamin D supplements. Check levels. General health concerns discussed with patient. Scribe services used to formulate this note under HIPAA compliance and under [place] law mandated for scribe services. Patient aware of service. Verbal consent and written consent taken from the patient. Patient understands and verbalizes understanding of the scribes services and all questions answered regarding scribes services. Patient agrees to use of scribes services. 08/11/2023 Polyosteoarthritis , unspecified (ICD-10 - M15.9) Ms. Tomlin is a 48-year-old lady with hypertension, morbid obesity, asthma, sleep apnea and anxiety disorder here for follow up. Plan is as follows: Hypertension. Blood pressure well controlled on current regimen. Hyperlipidemia. Total cholesterol 219. LDL 148. Non HDL 180. Trigylerides 158, which were high. Continue on current regimen and check lipid panel Asthma. She is stable on inhalers. she can also use phhw-mcr-shrwrlh antihistamines CANDICE. She sleeps well on CPAP. Polyosteoarthriti s. She is status post arthroscopic procedure left knee joint with no significant improvement. She still complains of pain. She was advised to lose weight and have left total knee replaced. We will give her referral to interventional radiology for genicular artery embolization to Dr. Fritz. Meanwhile she can continue Tylenol arthritis and she can use topical Biofreeze 3 times a day. Major depressive disorder. Mood stable on current regimen. She sees counsellor and psychiatrist. Vitamin D deficiency. Vitamin D 17.5 which is low. She may take Vitamin D supplements. Check levels. Morbid obesity. Advised dietary restrictions and regimental exercise. Goal is to lose 5-6 lbs a month. unfortunately her insurance does not cover weight management medication. She has tried dietary modification and lifestyle changes with no significant improvement. She will benefit from bariatric surgery which she is not interested at this point in time and we will review again Impaired fasting glucose. A1c 5.8. Fasting sugars 104. Dietary restrictions, regimental exercise and weight loss advised. Check A1c. Blood work reviewed with patient and questions answered. Screening blood work before next appointment. General health concerns discussed with patient. Scribe services used to formulate this note under HIPAA compliance and under [place] law mandated for scribe services. Patient aware of service. Verbal consent and written consent taken from the patient. Patient understands and verbalizes understanding of the scribes services and all questions answered regarding scribes services. Patient agrees to use of scribes services. 02/09/2024 Hyperlipidemia, unspecified (ICD-10 - E78.5) Ms. Tomlin is a 49-year-old lady with hypertension, morbid obesity, asthma, sleep apnea and anxiety disorder here for follow up. Plan is as follows: Hypertension. Blood pressure well controlled on HCTZ 25 MG once a day. Hyperlipidemia. Continue on current regimen and check lipid panel Asthma. She is stable on inhalers. she can also use ulij-tkk-sedqypn antihistamines CANDICE/shortness of breath. She sleeps well on CPAP. She recently saw Pulmonology at [facility] where she was started with Furosemide which she did not tolerate and she is now on HCTZ. Polyosteoarthriti s. She is status post arthroscopic procedure left knee joint with no significant improvement. She still complains of pain. She was advised to lose weight and have left total knee replaced. Meanwhile she can continue Tylenol arthritis and she can use topical Biofreeze 3 times a day. Major depressive disorder. Mood stable on current regimen. She sees counsellor and psychiatrist. Hyperglycemia. A1c 6.3. Dietary restrictions, regimental exercise and weight loss advised. check A1c. Morbid obesity. Advised dietary restrictions and regimental exercise. Goal is to lose 5-6 lbs a month. Unfortunately her insurance does not cover weight management medication. She has tried dietary modification and lifestyle changes with no significant improvement. She will benefit from bariatric surgery which she is not interested at this point in time and we will review again Vitamin D deficiency. Vitamin D 26.0 which is low. She may take Vitamin D supplements. Check levels. General health concerns discussed with patient. Scribe services used to formulate this note under HIPAA compliance and under [place] law mandated for scribe services. Patient aware of service. Verbal consent and written consent taken from the patient. Patient understands and verbalizes understanding of the scribes services and all questions answered regarding scribes services. Patient agrees to use of scribes services. 11/11/2023 Hypokalemia (ICD-10 - E87.6) Ms. Tomlin is a 48-year-old lady with hypertension, morbid obesity, asthma, sleep apnea and anxiety disorder here for hospital discharge follow-up. Plan as follows: Infectious gastroenteritis Constipation - Patient is still taking analgesic for pain as needed. Still endorses some pain but her symptoms significantlt improved. PE is remarkable for mild tenderness throughout. Tamara states that while in the hospital, the attending recommended to follow-up with GI to r/o crohns disease given a history of polyps and recently presented with enteritis and dark stools . Though per-records GI panel was negative. Referred patient to GI for further evaluation. Constipation most likely secondary to analgesic. Start linzess for constipation. Stay hydrated. Continue on fiber diet. Unspecified cysts of left and right ovarian: - Patient is s/p hysterectomy. CT scan revealed cysts within BL adnexa more numerous on the left within the largest measuring up to 4.0cm. Ordered an U/S of pelvis to further assess the cysts and referred to obgyn. HTN: - BP is well controlled, continue on the same regimen. She is on Lisinopril-HCTZ and amlodipine. Patient has been taking HCTZ, amlodipine and Lisinopril-HCTZ. Advised on discontinuing HCTZ. Hypokalemia: - Most likely secondary to HCTZ. Patient was given potassium pills from the hospital. I will recheck COMP in one week. CHAPO: - Symptoms are controlled. Continue on the same regimen CANDICE: - States that mask from CPAP causes discomfort, advised patient to reach out for nasal cannula as an alternative. I have rendered the services for this patient under direct supervision of Dr. Plascencia, who did not see the patient but was available upon request on telephone agree with above plan Nothing in the differential warrants any red flag symptoms, but the patient was informed that should they develop any new or worsening of symptoms they need to go to the ER immediately. 11/11/2023 Generalized anxiety disorder (ICD-10 - F41.1) Ms. Tomlin is a 48-year-old lady with hypertension, morbid obesity, asthma, sleep apnea and anxiety disorder here for hospital discharge follow-up. Plan as follows: Infectious gastroenteritis Constipation - Patient is still taking analgesic for pain as needed. Still endorses some pain but her symptoms significantlt improved. PE is remarkable for mild tenderness throughout. Tamara states that while in the hospital, the attending recommended to follow-up with GI to r/o crohns disease given a history of polyps and recently presented with enteritis and dark stools . Though per-records GI panel was negative. Referred patient to GI for further evaluation. Constipation most likely secondary to analgesic. Start linzess for constipation. Stay hydrated. Continue on fiber diet. Unspecified cysts of left and right ovarian: - Patient is s/p hysterectomy. CT scan revealed cysts within BL adnexa more numerous on the left within the largest measuring up to 4.0cm. Ordered an U/S of pelvis to further assess the cysts and referred to obgyn. HTN: - BP is well controlled, continue on the same regimen. She is on Lisinopril-HCTZ and amlodipine. Patient has been taking HCTZ, amlodipine and Lisinopril-HCTZ. Advised on discontinuing HCTZ. Hypokalemia: - Most likely secondary to HCTZ. Patient was given potassium pills from the hospital. I will recheck COMP in one week. CHAPO: - Symptoms are controlled. Continue on the same regimen CANDICE: - States that mask from CPAP causes discomfort, advised patient to reach out for nasal cannula as an alternative. I have rendered the services for this patient under direct supervision of Dr. Plascencia, who did not see the patient but was available upon request on telephone agree with above plan Nothing in the differential warrants any red flag symptoms, but the patient was informed that should they develop any new or worsening of symptoms they need to go to the ER immediately. 02/09/2024 Obstructive sleep apnea (ICD-10 - G47.33) Ms. Tomlin is a 49-year-old lady with hypertension, morbid obesity, asthma, sleep apnea and anxiety disorder here for follow up. Plan is as follows: Hypertension. Blood pressure well controlled on HCTZ 25 MG once a day. Hyperlipidemia. Continue on current regimen and check lipid panel Asthma. She is stable on inhalers. she can also use sviy-xjg-qdzrhmc antihistamines CANDICE/shortness of breath. She sleeps well on CPAP. She recently saw Pulmonology at [facility] where she was started with Furosemide which she did not tolerate and she is now on HCTZ. Polyosteoarthriti s. She is status post arthroscopic procedure left knee joint with no significant improvement. She still complains of pain. She was advised to lose weight and have left total knee replaced. Meanwhile she can continue Tylenol arthritis and she can use topical Biofreeze 3 times a day. Major depressive disorder. Mood stable on current regimen. She sees counsellor and psychiatrist. Hyperglycemia. A1c 6.3. Dietary restrictions, regimental exercise and weight loss advised. check A1c. Morbid obesity. Advised dietary restrictions and regimental exercise. Goal is to lose 5-6 lbs a month. Unfortunately her insurance does not cover weight management medication. She has tried dietary modification and lifestyle changes with no significant improvement. She will benefit from bariatric surgery which she is not interested at this point in time and we will review again Vitamin D deficiency. Vitamin D 26.0 which is low. She may take Vitamin D supplements. Check levels. General health concerns discussed with patient. Scribe services used to formulate this note under HIPAA compliance and under [place] law mandated for scribe services. Patient aware of service. Verbal consent and written consent taken from the patient. Patient understands and verbalizes understanding of the scribes services and all questions answered regarding scribes services. Patient agrees to use of scribes services. 02/09/2024 Morbid (severe) obesity due to excess calories (ICD-10 - E66.01) Ms. Tomlin is a 49-year-old lady with hypertension, morbid obesity, asthma, sleep apnea and anxiety disorder here for follow up. Plan is as follows: Hypertension. Blood pressure well controlled on HCTZ 25 MG once a day. Hyperlipidemia. Continue on current regimen and check lipid panel Asthma. She is stable on inhalers. she can also use vsdo-sfk-lifbrhx antihistamines CANDICE/shortness of breath. She sleeps well on CPAP. She recently saw Pulmonology at [facility] where she was started with Furosemide which she did not tolerate and she is now on HCTZ. Polyosteoarthriti s. She is status post arthroscopic procedure left knee joint with no significant improvement. She still complains of pain. She was advised to lose weight and have left total knee replaced. Meanwhile she can continue Tylenol arthritis and she can use topical Biofreeze 3 times a day. Major depressive disorder. Mood stable on current regimen. She sees counsellor and psychiatrist. Hyperglycemia. A1c 6.3. Dietary restrictions, regimental exercise and weight loss advised. check A1c. Morbid obesity. Advised dietary restrictions and regimental exercise. Goal is to lose 5-6 lbs a month. Unfortunately her insurance does not cover weight management medication. She has tried dietary modification and lifestyle changes with no significant improvement. She will benefit from bariatric surgery which she is not interested at this point in time and we will review again Vitamin D deficiency. Vitamin D 26.0 which is low. She may take Vitamin D supplements. Check levels. General health concerns discussed with patient. Scribe services used to formulate this note under HIPAA compliance and under [place] law mandated for scribe services. Patient aware of service. Verbal consent and written consent taken from the patient. Patient understands and verbalizes understanding of the scribes services and all questions answered regarding scribes services. Patient agrees to use of scribes services. 11/11/2023 Obstructive sleep apnea (ICD-10 - G47.33) Ms. Tomlin is a 48-year-old lady with hypertension, morbid obesity, asthma, sleep apnea and anxiety disorder here for hospital discharge follow-up. Plan as follows: Infectious gastroenteritis Constipation - Patient is still taking analgesic for pain as needed. Still endorses some pain but her symptoms significantlt improved. PE is remarkable for mild tenderness throughout. Tamara states that while in the hospital, the attending recommended to follow-up with GI to r/o crohns disease given a history of polyps and recently presented with enteritis and dark stools . Though per-records GI panel was negative. Referred patient to GI for further evaluation. Constipation most likely secondary to analgesic. Start linzess for constipation. Stay hydrated. Continue on fiber diet. Unspecified cysts of left and right ovarian: - Patient is s/p hysterectomy. CT scan revealed cysts within BL adnexa more numerous on the left within the largest measuring up to 4.0cm. Ordered an U/S of pelvis to further assess the cysts and referred to obgyn. HTN: - BP is well controlled, continue on the same regimen. She is on Lisinopril-HCTZ and amlodipine. Patient has been taking HCTZ, amlodipine and Lisinopril-HCTZ. Advised on discontinuing HCTZ. Hypokalemia: - Most likely secondary to HCTZ. Patient was given potassium pills from the hospital. I will recheck COMP in one week. CHAPO: - Symptoms are controlled. Continue on the same regimen CANDICE: - States that mask from CPAP causes discomfort, advised patient to reach out for nasal cannula as an alternative. I have rendered the services for this patient under direct supervision of Dr. Plascencia, who did not see the patient but was available upon request on telephone agree with above plan Nothing in the differential warrants any red flag symptoms, but the patient was informed that should they develop any new or worsening of symptoms they need to go to the ER immediately. 02/09/2024 Vitamin D deficiency, unspecified (ICD-10 - E55.9) Ms. Tomlin is a 49-year-old lady with hypertension, morbid obesity, asthma, sleep apnea and anxiety disorder here for follow up. Plan is as follows: Hypertension. Blood pressure well controlled on HCTZ 25 MG once a day. Hyperlipidemia. Continue on current regimen and check lipid panel Asthma. She is stable on inhalers. she can also use gjxr-wgk-thqotyp antihistamines CANDICE/shortness of breath. She sleeps well on CPAP. She recently saw Pulmonology at [facility] where she was started with Furosemide which she did not tolerate and she is now on HCTZ. Polyosteoarthriti s. She is status post arthroscopic procedure left knee joint with no significant improvement. She still complains of pain. She was advised to lose weight and have left total knee replaced. Meanwhile she can continue Tylenol arthritis and she can use topical Biofreeze 3 times a day. Major depressive disorder. Mood stable on current regimen. She sees counsellor and psychiatrist. Hyperglycemia. A1c 6.3. Dietary restrictions, regimental exercise and weight loss advised. check A1c. Morbid obesity. Advised dietary restrictions and regimental exercise. Goal is to lose 5-6 lbs a month. Unfortunately her insurance does not cover weight management medication. She has tried dietary modification and lifestyle changes with no significant improvement. She will benefit from bariatric surgery which she is not interested at this point in time and we will review again Vitamin D deficiency. Vitamin D 26.0 which is low. She may take Vitamin D supplements. Check levels. General health concerns discussed with patient. Scribe services used to formulate this note under HIPAA compliance and under [place] law mandated for scribe services. Patient aware of service. Verbal consent and written consent taken from the patient. Patient understands and verbalizes understanding of the scribes services and all questions answered regarding scribes services. Patient agrees to use of scribes services. Plan Of Treatment Pending Test Test Name Order Date X ray : Foot, left 08/25/2017 X ray : Knee, right 2 views 05/14/2019 Electrocardiogram (EKG) 08/16/2018 Electrocardiogram (EKG) 08/29/2017 TSH 08/16/2018 CBC 08/16/2018 ALT (SGPT) 06/03/2022 AST (SGOT) 06/03/2022 COMPREHENSIVE METABOLIC PANEL 04/22/2022 HEMOGLOBIN A1C 08/06/2021 HEMOGLOBIN A1C WITH EST GLUCOSE 07/17/19 HEMOGLOBIN A1C WITH EST GLUCOSE 04/22/20 LIPID PANEL 04/22/2022 LIPID PANEL 05/12/2022 LIPID PANEL 06/03/2022 US Abdomen 02/06/2018 Basic Metabolic Panel 08/16/2018 Xray: Foot Left-Min 3 Vws 11/07/2017 Xray: Hip-Bilat With Pelvis 05/23/2024 Xray: Knee Left (Standard, 4 Views) 10/23 US Pelvis 11/11/2023 US Pelvis 06/27/2018 Hemoglobin [id number] 06/21/2024 Comp. Metabolic Panel [id number] 2023 Next Appt Details Provider Name:Lisseth Matos, Pirere 08/13/2024 08:45:00 AM, [address] [place] [address], [phone], Insurance Providers Payer Name Payer Address Payer Phone Subscriber Number Group Number Insured Name Patient Relationship to Insured Coverage Start Date Coverage End Date [facility] I [address] [address] [place] [address] [phone] [id number] Colon, Tamara Self - patient is the insured Medical (General) History Medical History History ICD Code migraine headaches asthma - mild intermittent Generalized anxiety disorder /depression See Amaury Reyna and see Dr Sanders at [facility] Morbid obesity Osteoarthritis in multiple joints Pseudotumor Cerebri and see Dr Reyes s/p COVID 19 Infection Lipedema Hypertension Hyperlipidemia ovarian cyst followed by [facility]. Surgical History Surgery Date(Month/Year) hysterectomy secondary to endometriosis left knee arthroscopy See Dr Tomas left ankle surgery at [facility] cholecystectomy Left Knee surgery by Dr Virgen 12/2022 Hospitalization History Reason Date(Month/Year)
--- OUTSIDE RECORDS SUMMARY | 2024-08-08 11:02 | XMS_ITS ---
Author Organization [facility] Address [address] [place] [phone] Care Team Providers Care Kiln Packer Name Role Phone RADHA PLASCENCIA Primary Care Provider REASON FOR VISIT EAEDC Form Encounters Encounter Location Date Provider Diagnosis [address] [address] 07/04/2024 RADHA PLASCENCIA Plan Of Treatment Next Appt Details Provider Name:Lisseth Matos, Pierre 08/13/2024 08:45:00 AM, [address] [place] [address], [place], [phone], Progress Notes * Uriah TOMLINaDOB:1975 ( 49 yo F)Acc No.[id number]:07/04/2024 Patient:?Tamara TOMLIN :1975???Age:49 Y???Sex:Female Address:[address] [place] [phone] * true * Date:? Generated for Winston valerio/Suhail/eTransmitting on:?08/08/2024 11:01 AM EDT
--- OUTSIDE RECORDS SUMMARY | 2024-08-08 11:02 | XMS_ITS | Clinical Summary ---
Author Organization [facility] [address] [place] [address] [place] [phone] Phone Care Team Providers Care Tire Servicer Name Role Phone Radha Plascencia MD Primary Care Provider [phone] Encounters Date Type Department Care Team Description 08/01/2024 11:00 AM EDT Treatment Physical Therapy [facility] [address] [place] [phone] Brown, Michael, PT Pain in right hip (Primary Dx); Difficulty in walking 07/30/2024 10:45 AM EDT Treatment Physical [facility] [address] [place] [phone] Orin Esquivel H, ESTIMATOR LUMBER Pain in right hip (Primary Dx); Difficulty in walking 07/25/2024 12:00 PM EDT Treatment Physical [facility] [address] [place] [phone] Orin Esquivel H, ESTIMATOR LUMBER Pain in right hip (Primary Dx); Difficulty in walking 07/20/2024 12:45 PM EDT Treatment Physical [facility] [address] [place] [phone] Brown, Michael, PT Pain in right hip (Primary Dx); Difficulty in walking 07/18/2024 12:00 PM EDT Treatment Physical [facility] [address] [place] [phone] Orin Esquivel H, ESTIMATOR LUMBER Pain in right hip (Primary Dx); Difficulty in walking 07/11/2024 11:00 AM EDT Treatment Physical [facility] [address] [place] [address] BrownMichael, PT Pain in right hip (Primary Dx); Difficulty in walking 07/09/2024 9:15 AM EDT Treatment Physical [place] [place] [address] [place] [phone] Orin sEquivel H, ESTIMATOR LUMBER Pain in right hip (Primary Dx); Difficulty in walking 07/05/2024 10:15 AM EDT Evaluation Physical [facility] [address] [place] [phone] Michael Pascual, PT Difficulty in walking (Primary Dx); Pain in right hip 07/05/2024 Plan of Care Documentation [address] [phone] from Last 3 Months Surgical History Surgery Date Site/Laterality Comments OTHER SURGICAL HISTORY Left PROCEDURE: KNEE JOINT CAM LOCK EACH TERESA; COMMENT: 6 knee surgeries, -[phone], knee ligaments broken and knee cap dislocated Medical History Medical History Date Comments Asthma DX:Asthma Depressive disorder DX:Depressiv e disorder Anxiety state DX:Anxiety state H/O joint problems DX:H/O joint problems Heart murmur DX:Heart murmur Reflex apnea DX:Reflex apnea Esophageal reflux DX:Esophageal reflux Essential hypertension DX:Essent ial hypertension Family History Medical History Relation Name Comments Diabetes Father Schizophrenia Father Arthritis Mother Neurological Disorder Mother Relation Name Status Comments Father Alive Mother Alive Social History Tobacco Use Types Packs/Day Years Used Date Smoking Tobacco: Former Smokeless Tobacco: Former Alcohol Use Standard Drinks/Week Comments No 0 (1 standard drink = 0.6 oz pur e alcohol) Comments Unknown Sex and Gender Information Value Date Recorded Sex Assigned at Not on file Legal Sex Female 1:56 PM EST Gender Identity Not on file Sexual Orientation Not on file Obstetrics History Last Filed Vital Signs Vital Sign Reading Time Taken Comments Blood Pressure - - Pulse - - Temperature - - Respiratory Rate - - Oxygen Saturation - - Inhaled Oxygen Concentration - - Weight 110 kg (242 lb) 09/02/2023 10:21 AM EDT Height 162.6 cm (5' 4 ) 09/02/2023 10:21 AM EDT Body Mass Index 41.54 09/02/2023 10:21 AM EDT Plan of Treatment Health Maintenance Due Date Last Done Comments Hepatitis B Vaccines (1 of 3 - 19+ 3-dose series) 1993 Cervical Cancer Screening: Pap Smear 1995 Pneumococcal Vaccine: 50+ Years (2 of 2 - PCV) 05/10/2013 05/10/2012 Pneumococcal Vaccine: Pediatrics (0 to 5 Years) and At-Risk Patients (6 to 64 Years) (2 of 2 - PCV) 05/10/2013 05/10/2012 Cholesterol Screening (Lipid Panel) 03/29/2022 Colorectal Cancer Screening: Colonoscopy 03/29/2022 Depression Screening 03/29/2022 HIV Screening 03/29/2022 Hepatitis C Screening 03/29/2022 Social Influencers of Health Screening 03/29/2022 DTaP,Tdap,and Td Vaccines (2 - Td or Tdap) 04/12/2022 04/12/2012 Breast Cancer Screening 08/06/2023 08/05/2021 COVID-19 Vaccine (1 - season) 2023 Zoster Vaccines (1 of 2) 01/20/2024 Influenza Vaccine (Season Ended) 2024 01/17/2017, 03/25/2015, 03/27/2014, Additional history exists HIB Vaccines Aged Out No longer eligi ble based on patient's age to complete this topic HPV Vaccines Aged Out No longer eligi ble based on patient's age to complete this topic Hepatitis A Vaccines Aged Out No long er eligible based on patient's age to complete this topic IPV Vaccines Aged Out No longer eligi ble based on patient's age to complete this topic MMR Vaccines Aged Out No longer eligi ble based on patient's age to complete this topic Meningococcal ACWY Vaccine Aged Out N o longer eligible based on patient's age to complete this topic Meningococcal B Vaccine Aged Out No l onger eligible based on patient's age to complete this topic RSV Immunization Patients Under 20 months Aged Out No longer eligible based on patient's age to complete this topic Varicella Vaccines Aged Out No longer eligible based on patient's age to complete this topic Procedures Procedure Name Priority Date/Time Associated Diagnosis Comments [facility] SCREENING DIGITAL Routine 08/05/2021 4:34 PM EDT Encounter for screening mammogram for malignant neoplasm of breast from Last 3 Months or Most Recently Relevant to Health Maintenance Results * [facility] SCREENING DIGITAL (08/05/2021 4:34 PM EDT) Anatomical Region Laterality Modality Mammography 08/05/2021 11:0 2 AM EDT Narrative 08/05/2021 4:34 PM EDT [facility] Diagnostic Imaging Department [address] [place] [address] Patient: ??COLON,TAMARA ?/Age/Sex: 1975 - 46 - F Unit#: ??[id number] ? Location/Status: ??SPDIMAM/REG CLI ? Mnemonic/Ordering Site: ??DIGSC/SPMAM Ordering Physician: ??RADHA PLASCENCIA MD [facility] Screening Digital - 08/05/211121 INDICATION: SCREENING COMPARISON: [facility] mammograms dating back to ?? 09/26/2009 TECHNIQUE: CC and MLO views of the breasts were obtained, using full field digital mammography with 3D tomosynthesis views in the MLO projection. A cleavage view was also obtained. Computer aided detection with the [employer] 7.2-H was employed. FINDINGS: The breasts contain heterogeneously dense tissues, which may lower sensitivity of mammography in this patient. No suspicious masses, suspicious microcalcifications, or areas of architectural distortion are identified. ??There are no secondary signs of breast malignancy. IMPRESSION: ??No specific mammographic evidence of breast malignancy. Lack of an imaging correlate should not deter or delay biopsy of a clinically significant palpable finding. BI-RADS ??- Category 1: Negative 3341F, 7025F Annual screening mammography is recommended. Patient entered into a reminder system with a target date for the next mammogram. (G0202 / 34537) , ??[id number] Dictating Physician: ??DENIA FONTANA MD Electronically Signed by: ??DENIA FONTANA MD Dic Date/Time: ??08/05/21 163 Sign date/Time: ??08/05/21 1634 Procedure Note Denia Fontana MD - 04/14/2022 [facility] Diagnostic Imaging Department [address] [place] [address] Patient: TAMARA MULTANI /Age/Sex: 1975 - 46 - F Unit#: [id number] Location[facility] Mnemonic/Ordering Site: [facility] Ordering Physician: RADHA PLASCENCIA MD [facility] Screening Digital - 08/05/21 - 112 INDICATION: SCREENING COMPARISON: [facility] mammograms dating back to 09/26/2009 TECHNIQUE: CC and MLO views of the breasts were obtained, using full field digital mammography with 3D tomosynthesis views in the MLO projection. A cleavageview was also obtained. Computer aided detection with the [employer] 7.2-H was employed. FINDINGS: The breasts contain heterogeneously dense tissues, which may lowersensitivity of mammography in this patient. No suspicious masses, suspicious microcalcifications, or areas ofarchitectural distortion are identified. There are no secondary signs of breastmalignancy. IMPRESSION: No specific mammographic evidence of breast malignancy. Lack of an imaging correlate should not deter or delay biopsy of aclinically significant palpable finding. BI-RADS - Category 1: Negative 3341F, 7025F Annual screening mammography is recommended. Patient entered into a reminder system with a target date for the next mammogram. G0202 / 34076 , [id number] Dictating Physician: DENIA FONTANA MD Electronically Signed by: DENIA FONTANA MD Dic Date/Time: 08/05/21 1632 Sign date/Time: 08/05/21 1634 Radha Plascencia MD IMG BI PROCEDURES Final Result from Last 3 Months or Most Recently Relevant to Health Maintenance Insurance [facility] Care Teams Tire Servicer Relationship Specialty Start Date End Date Radha Plascencia MD [address] [place] [address] PCP - General Internal Medicine 10/28/16
--- OUTSIDE RECORDS SUMMARY | 2024-08-08 11:02 | XMS_ITS ---
Author Organization [facility] Address [address] [place] [phone] Care Team Providers Care Rn Referral Name Role Phone RADHA PLASCENCIA Primary Care Provider REASON FOR VISIT EAEDC DTA Form Encounters Encounter Location Date Provider Diagnosis [address] [address] 06/27/2024 RADHA PLASCENCIA Plan Of Treatment Next Appt Details Provider Name:Lisseth Matos, Pierre 08/13/2024 08:45:00 AM, [address] [place] [address], [place], [phone], Progress Notes * Uriah TOMLINaDOB:1975 ( 49 yo F)Acc No.[id number]:06/27/2024 Patient:?Tamara TOMLIN :1975???Age:49 Y???Sex:Female Address:[address] [place] [phone] * true * Date:? Generated for Winston valerio/Suhail/eTransmitting on:?08/08/2024 11:02 AM EDT
== END 2024-08-08 10:56 | disposition home or self-care (01) ==
LOC: HO.HSMS 09:48
PROVIDERS: PCP Hospitalist; Visit Provider Nurse Practitioner Family
DX: G47.33 Obstructive sleep apnea (adult) (pediatric) (principal); E66.01 Morbid (severe) obesity due to excess calories; I10 Essential (primary) hypertension
CPT/HCPCS: 99214

== ENCOUNTER → 2024-08-08 09:47 | Outpatient (BNVA) | payer OTHER, SELFPAY | PROVIDERS: PCP Hospitalist; Visit Provider Nurse Practitioner Family | DX: G47.33 Obstructive sleep apnea (adult) (pediatric) (principal); I10 Essential (primary) hypertension; E66.01 Morbid (severe) obesity due to excess calories; Z68.41 Body mass index [BMI] 40.0-44.9, adult; Z99.89 Dependence on other enabling machines and devices | CPT/HCPCS: 99212 ==